=== PATIENT | male | born 1955 | race Caucasian/White ===

== ENCOUNTER 2018-03-07 09:37 | Inpatient (IN) | payer BC ==
[~2018-03-07] VITALS: Ht 175.3 cm; Wt 80.7 kg
[2018-03-07 09:57] VITALS: BP 132/70
[2018-03-07 10:43] LABS: APPEARANCE,URINE TURBID; BILIRUBIN, URINE NEGATIVE (NEGATIVE); COLOR,URINE PALE YELLOW; GLUCOSE, URINE (UA) 2+ (NEGATIVE); KETONES,URINE 1+ (NEGATIVE); LEUKOCYTE ESTERASE ,URINE 1+ (NEGATIVE); NITRITE,URINE NEGATIVE (NEGATIVE); PH,URINE 7 (4.5-8.0); PROTEIN,URINE 4+ (NEGATIVE); UROBILINOGEN,URINE NORMAL MG/DL (0.0-1.0)
[2018-03-07 10:45] LABS: BASOPHILS % (AUTO) 1.6 % (0.0-2.0); EOSINOPHILS % (AUTO) 1.9 % (0.0-3.0); HEMATOCRIT 36.6 % (42.0-52.0); HEMOGLOBIN 11.9 G/DL (14.2-18.0); LYMPHOCYTES % (AUTO) 14.9 % (20.0-45.0); MEAN CORPUSCULAR VOLUME 90 FL (80-99); MONOCYTES % (AUTO) 6.3 % (1.0-10.0); NEUTROPHILS % (AUTO) 75.2 % (45.0-75.0); PLATELET COUNT 394 K/UL (150-450); RED BLOOD COUNT 4.07 M/UL (4.70-6.10); RED CELL DISTRIBUTION WIDTH 13.4 % (11.6-14.8); WHITE BLOOD COUNT 13.6 K/UL (4.8-10.8)
[2018-03-07 10:53] LABS: ANION GAP 6 mmol/L (5-15); BLOOD UREA NITROGEN 53 mg/dL (7-18); CALCIUM 9.5 MG/DL (8.5-10.1); CARBON DIOXIDE 30 MMOL/L (21-32); CHLORIDE 111 MMOL/L (98-107); CREATININE 2.3 MG/DL (0.55-1.30); POTASSIUM 5.2 MMOL/L (3.5-5.1); SODIUM 147 MMOL/L (136-145)
[2018-03-07 10:57] LABS: ALANINE AMINOTRANSFERASE 24 U/L (12-78); ALBUMIN 2.1 G/DL (3.4-5.0); ALBUMIN/GLOBULIN RATIO 0.4 (1.0-2.7); ALKALINE PHOSPHATASE 99 U/L (46-116); ASPARTATE AMINO TRANSFERASE 21 U/L (15-37); BILIRUBIN,TOTAL 0.2 MG/DL (0.2-1.0); CREATINE KINASE 45 U/L (26-308)
[2018-03-07] MEDS ORDERED: PANTOPRAZOLE SO40 MG GT (11:44)
[2018-03-07] MEDS ORDERED: AMLODIPINE BESYL5 MG GT (11:44)
[2018-03-07] MEDS ORDERED: MILK OF MA400 MG/51 HEMO (11:44)
[2018-03-07] MEDS ORDERED: ACETAMINOPHEN325 M1 GT (11:44)
[2018-03-07] MEDS ORDERED: ASCORBIC ACID500 MG GT (11:44)
[2018-03-07] MEDS ORDERED: CATAPRES-TTS 11 EACH TDERMAL (11:44)
[2018-03-07] MEDS ORDERED: AMIODARONE HCL400 M1 GT (11:44)
[2018-03-07] MEDS ORDERED: METOPROLOL TART50 MG GT (11:44)
[2018-03-07] MEDS ORDERED: ZINC-220220 MG GT (11:44)
[2018-03-07] MEDS ORDERED: HYDRALAZINE HCL50 MG GT (11:44)
[2018-03-07] MEDS ORDERED: LANTUS SOL100 UNIT/1 SUBQ (11:44)
[2018-03-07] MEDS ORDERED: LISINOPRIL40 MG ORAL (11:44)
[2018-03-07] MEDS ORDERED: BETHANECHOL CHL25 MG GT (11:44)
[2018-03-07] MEDS ORDERED: ATORVASTATIN CA40 MG GT (11:44)
--- NOTE | 2018-03-07 13:05 | Emergency Room Report ---
History of Present Illness General Chief Complaint: Gastrointestinal Bleed Source: Medical Record, EMS Present Illness HPI This patient [facility]. He had an episode of coffee-ground emesis this morning per the staff and was transferred here for concern of upper GI bleed. The patient himself has no complaints. He is able to shake his head yes or no but he has severe dementia. There is no other history of present illness available. Allergies: Coded Allergies: PENICILLINS (Verified Allergy, Unknown, 03/07/18) Patient History Past Medical History: see triage record, old chart reviewed, DM, CVA/TIA, dementia Past Surgical History: other - G-tube Social History: Denies: smoking, alcohol use, drug use Reviewed Nursing Documentation: PMH: Agreed; PSxH: Agreed Nursing Documentation-PMH Past Medical History: No History, Except For Hx Hypertension: Yes Hx Diabetes: Yes Review of Systems All Other Systems: limited Physical Exam Vital Signs Date Time Temp Pulse Resp B/P (MAP) Pulse Ox O2 Delivery O2 Flow Rate FiO2 03/07/18 09:37 97.3 72 20 132/70 95 Room Air 97.3 Sp02 EP Interpretation: reviewed, normal General Appearance: no apparent distress, alert, GCS 15, non-toxic Head: normocephalic, atraumatic ENT: hearing grossly normal, no angioedema Neck: full range of motion, supple/symm/no masses Respiratory: chest non-tender, lungs clear, normal breath sounds, no respiratory distress, no retraction, no accessory muscle use, speaking full sentences Cardiovascular #1: regular rate, rhythm, no edema, systolic murmur Gastrointestinal: normal bowel sounds, non tender, soft, non-distended, no guarding, no rebound, other - G-tube in place Rectal: deferred Musculoskeletal: other - At baseline Neurologic: alert, responsive, other - At baseline Psychiatric: mood/affect normal Skin: warm/dry, well hydrated, other - See RN skin exam Medical Decision Making Last Vital Signs Date Time Temp Pulse Resp B/P (MAP) Pulse Ox O2 Delivery O2 Flow Rate FiO2 03/07/18 09:57 97.3 86 20 132/70 95 Room Air 97.3 Referrals: Wes Jara MD (PCP) BERHANE CARRILLO D.O. March 07, 2018 13:05
--- NOTE | 2018-03-07 13:16 | Emergency Room Report ---
History of Present Illness General Chief Complaint: Gastrointestinal Bleed Source: Medical Record, EMS Present Illness Allergies: Coded Allergies: PENICILLINS (Verified Allergy, Unknown, 03/07/18) Nursing Documentation-[facility] Past Medical History: No History, Except For Hx Hypertension: Yes Hx Diabetes: Yes Physical Exam Vital Signs Date Time Temp Pulse Resp B/P (MAP) Pulse Ox O2 Delivery O2 Flow Rate FiO2 03/07/18 09:37 97.3 72 20 132/70 95 Room Air 97.3 Medical Decision Making Diagnostic Impression: Primary Impression: NSTEMI (non-ST elevated myocardial infarction) Additional Impression: UGI bleed ER Course See my other note for history and physical. This chronically ill patient had an episode of coffee-ground emesis prior to arrival here in the emergency department. Possibly this patient has an upper GI bleed. The patient's hemoglobin and hematocrit are not at transfusion level. The patient had no further episodes during his ED course. He is also found to have an elevated troponin consistent with a NSTEMI. The patient is admitted to the ICU step down as this patient's chronic medical illnesses, upper GI bleed and NSTEMI together put him at higher risk for rapid decompensation. This patient is critically ill. This patient required complex medical decision- making, aggressive intervention, extensive laboratory workup and monitoring. Critical care time: 40 minutes. Laboratory Tests Test 03/07/18 10:20 03/07/18 10:28 Urine Color Pale yellow Urine Appearance Turbid Urine pH 7 (4.5-8.0) Urine Specific [place] 1.005 (1.005-1.035) Urine Protein 4+ (NEGATIVE) H Urine Glucose (UA) 2+ (NEGATIVE) H Urine Ketones 1+ (NEGATIVE) H Urine Occult Blood 5+ (NEGATIVE) H Urine Nitrite Negative (NEGATIVE) Urine Bilirubin Negative (NEGATIVE) Urine Urobilinogen Normal MG/DL (0.0-1.0) Urine Leukocyte Esterase 1+ (NEGATIVE) H Urine RBC Tntc /HPF (0 - 0) H Urine WBC 2-4 /HPF (0 - 0) Urine Squamous Epithelial Cells Few /LPF (NONE/OCC) Urine Bacteria Few /HPF (NONE) Lactic Acid Level 1.10 mmol/L (0.66-2.22) White Blood Count 13.6 K/UL (4.8-10.8) H Red Blood Count 4.07 M/UL (4.70-6.10) L Hemoglobin 11.9 G/DL (14.2-18.0) L Hematocrit 36.6 % (42.0-52.0) L Mean Corpuscular Volume 90 FL (80-99) Mean Corpuscular Hemoglobin 29.2 PG (27.0-31.0) Mean Corpuscular Hemoglobin Concent 32.4 G/DL (32.0-36.0) Red Cell Distribution Width 13.4 % (11.6-14.8) Platelet Count 394 K/UL (150-450) Mean Platelet Volume 8.7 FL (6.5-10.1) Neutrophils (%) (Auto) 75.2 % (45.0-75.0) H Lymphocytes (%) (Auto) 14.9 % (20.0-45.0) L Monocytes (%) (Auto) 6.3 % (1.0-10.0) Eosinophils (%) (Auto) 1.9 % (0.0-3.0) Basophils (%) (Auto) 1.6 % (0.0-2.0) Prothrombin Time 10.3 SEC (9.30-11.50) Prothrombin Time INR 1.0 (0.9-1.1) PTT 24 SEC (23-33) Sodium Level 147 MMOL/L (136-145) H Potassium Level 5.2 MMOL/L (3.5-5.1) H Chloride Level 111 MMOL/L (98-107) H Carbon Dioxide Level 30 MMOL/L (21-32) Anion Gap 6 mmol/L (5-15) Blood Urea Nitrogen 53 mg/dL (7-18) H Creatinine 2.3 MG/DL (0.55-1.30) H Estimate Glomerular Filtration Rate 29.1 mL/min (>60) Glucose Level 188 MG/DL (74-106) H Calcium Level 9.5 MG/DL (8.5-10.1) Total Bilirubin 0.2 MG/DL (0.2-1.0) Aspartate Amino Transferase (AST) 21 U/L (15-37) Alanine Aminotransferase (ALT) 24 U/L (12-78) Alkaline Phosphatase 99 U/L (46-116) Total Creatine Kinase 45 U/L (26-308) Troponin I 0.157 ng/mL (0.000-0.056) Total Protein 7.5 G/DL (6.4-8.2) Albumin 2.1 G/DL (3.4-5.0) L Globulin 5.4 g/dL Albumin/Globulin Ratio 0.4 (1.0-2.7) L Lipase 125 U/L (73-393) EKG Diagnostic Results Rate: normal Rhythm: NSR ST Segments: no acute changes Rhythm Strip Diag. Results EP Interpretation: yes Rate: 70's Rhythm: NSR, no PVC's, no ectopy Last Vital Signs Date Time Temp Pulse Resp B/P (MAP) Pulse Ox O2 Delivery O2 Flow Rate FiO2 03/07/18 09:57 97.3 86 20 132/70 95 Room Air 97.3 Disposition: ADMITTED INPATIENT Condition: Critical Referrals: Wes Jara MD (PCP) BERHANE CARRILLO D.O. March 07, 2018 13:15
[2018-03-07 13:53] VITALS: BP 128/76
[2018-03-07] MEDS ORDERED: HUMALOG100 UNIT/4 SUBQ (14:37)
[2018-03-07 14:48] VITALS: BP 143/75
[2018-03-07 16:00] VITALS: BP 159/74
--- NOTE | 2018-03-07 17:51 | History & Physical ---
History and Physical History & Physicial 62 year old patient presents from a custodial facility. He had an episode of coffee-ground emesis this morning per the staff and was transferred and being admitted for upper GI bleed. The patient himself has no complaints. patient with severe dementia. There is no other history of present illness available. Allergies: PENICILLINS (Verified Allergy, Unknown, 03/07/18) Past Medical History: DM, CVA/TIA, dementia Past Surgical History: other - G-tube Social History: SNF patient Reviewed Nursing Documentation: unable Physical WDWN NAD clear breath sounds bilaterally without rhonchi or wheeze [id number] without MRG NABS nontender no HSM; GT no CCE confused Laboratory Tests Test 03/07/18 10:20 03/07/18 10:28 Urine Color Pale yellow Urine Appearance Turbid Urine pH 7 (4.5-8.0) Urine Specific [place] 1.005 (1.005-1.035) Urine Protein 4+ (NEGATIVE) H Urine Glucose (UA) 2+ (NEGATIVE) H Urine Ketones 1+ (NEGATIVE) H Urine Occult Blood 5+ (NEGATIVE) H Urine Nitrite Negative (NEGATIVE) Urine Bilirubin Negative (NEGATIVE) Urine Urobilinogen Normal MG/DL (0.0-1.0) Urine Leukocyte Esterase 1+ (NEGATIVE) H Urine RBC Tntc /HPF (0 - 0) H Urine WBC 2-4 /HPF (0 - 0) Urine Squamous Epithelial Cells Few /LPF (NONE/OCC) Urine Bacteria Few /HPF (NONE) Lactic Acid Level 1.10 mmol/L (0.66-2.22) White Blood Count 13.6 K/UL (4.8-10.8) H Red Blood Count 4.07 M/UL (4.70-6.10) L Hemoglobin 11.9 G/DL (14.2-18.0) L Hematocrit 36.6 % (42.0-52.0) L Mean Corpuscular Volume 90 FL (80-99) Mean Corpuscular Hemoglobin 29.2 PG (27.0-31.0) Mean Corpuscular Hemoglobin Concent 32.4 G/DL (32.0-36.0) Red Cell Distribution Width 13.4 % (11.6-14.8) Platelet Count 394 K/UL (150-450) Mean Platelet Volume 8.7 FL (6.5-10.1) Neutrophils (%) (Auto) 75.2 % (45.0-75.0) H Lymphocytes (%) (Auto) 14.9 % (20.0-45.0) L Monocytes (%) (Auto) 6.3 % (1.0-10.0) Eosinophils (%) (Auto) 1.9 % (0.0-3.0) Basophils (%) (Auto) 1.6 % (0.0-2.0) Prothrombin Time 10.3 SEC (9.30-11.50) Prothromb Time International Ratio 1.0 (0.9-1.1) Activated Partial Thromboplast Time 24 SEC (23-33) Sodium Level 147 MMOL/L (136-145) H Potassium Level 5.2 MMOL/L (3.5-5.1) H Chloride Level 111 MMOL/L (98-107) H Carbon Dioxide Level 30 MMOL/L (21-32) Anion Gap 6 mmol/L (5-15) Blood Urea Nitrogen 53 mg/dL (7-18) H Creatinine 2.3 MG/DL (0.55-1.30) H Estimat Glomerular Filtration Rate 29.1 mL/min (>60) Glucose Level 188 MG/DL (74-106) H Calcium Level 9.5 MG/DL (8.5-10.1) Total Bilirubin 0.2 MG/DL (0.2-1.0) Aspartate Amino Transf (AST/SGOT) 21 U/L (15-37) Alanine Aminotransferase (ALT/SGPT) 24 U/L (12-78) Alkaline Phosphatase 99 U/L (46-116) Total Creatine Kinase 45 U/L (26-308) Troponin I 0.157 ng/mL (0.000-0.056) Total Protein 7.5 G/DL (6.4-8.2) Albumin 2.1 G/DL (3.4-5.0) L Globulin 5.4 g/dL Albumin/Globulin Ratio 0.4 (1.0-2.7) L Lipase 125 U/L (73-393) IMPRESSION possible GIB coffee ground emesis anemia acute renal failure hypernatremia dementia chronic encephalopathy PLAN hypotonic fluids protonix gi cards renal monitor NPO x meds impression, plan, and exam edited and reviewed in detail care discussed with RN Ishaaya,Wes M MD March 07, 2018 17:51
[2018-03-07] MEDS: Ascorbic Acid 500mg tab GT SCH (18:00)
[2018-03-07] MEDS: Bethanechol 25mg Tab GT SCH (18:00)
[2018-03-07 20:00] VITALS: BP 133/70
--- NOTE | 2018-03-07 21:06 | Diagnostic Imaging Report ---
EXAM: US Retroperitoneal Limited, Renal CLINICAL HISTORY: RENAL-A TECHNIQUE: Real-time ultrasound of the retroperitoneum (limited) with image documentation. COMPARISON: No relevant prior studies available. FINDINGS: Right kidney: Measures 11.5 cm. No stones. No solid mass. No hydronephrosis. Left kidney: Measures 12.8 cm. No stones. No solid mass. No hydronephrosis. IMPRESSION: Unremarkable appearance of the kidneys.
[2018-03-07] MEDS: Amiodarone 200mg tab GT SCH (21:46)
[2018-03-07] MEDS: HydrALAZINE 50mg tab GT SCH (21:47)
[2018-03-07] MEDS: Metoprolol Tartrate 50mg tab GT SCH (21:48)
[2018-03-07] MEDS: Atorvastatin 80mg tab GT SCH (21:48)
[2018-03-07] MEDS: NovoLOG Insulin Flexpen SUBQ SCH (21:51)
--- NOTE | 2018-03-07 21:53 | General Progress Note ---
Assessment/Plan Assessment/Plan Assessment - UGIB, limited - ? GERD - mild anemia - OBS - Azotemia - dysphagia Recommendation - Follow conservatively - Monitor CBC - PPI - Elevate HOB - possible EGD next week Subjective Allergies: Coded Allergies: PENICILLINS (Verified Allergy, Unknown, 03/07/18) Objective Last 24 Hour Vital Signs Date Time Temp Pulse Resp B/P (MAP) Pulse Ox O2 Delivery O2 Flow Rate FiO2 03/07/18 21:48 74 133/70 03/07/18 21:47 133/70 03/07/18 18:14 159/74 03/07/18 16:00 81 03/07/18 16:00 97.9 82 18 159/74 96 Room Air 97.9 03/07/18 14:48 97.0 84 20 143/75 96 Room Air 97.0 03/07/18 14:37 97.0 80 22 128/76 96 Room Air 97.0 03/07/18 13:53 97.0 80 22 128/76 96 Room Air 97.0 03/07/18 09:57 97.3 86 20 132/70 95 Room Air 97.3 03/07/18 09:37 97.3 72 20 132/70 95 Room Air 97.3 Laboratory Tests 03/07/18 10:20: Urine Color Pale yellow, Urine Appearance Turbid, Urine pH 7, Urine Specific [place] 1.005, Urine Protein 4+H, Urine Glucose (UA) 2+H, Urine Ketones 1+H, Urine Occult Blood 5+H, Urine Nitrite Negative, Urine Bilirubin Negative, Urine Urobilinogen Normal, Urine Leukocyte Esterase 1+H, Urine RBC TntcH, Urine WBC 2- 4, Urine Squamous Epithelial Cells Few, Urine Bacteria Few, Lactic Acid Level 1.10 03/07/18 10:28: White Blood Count 13.6H, Red Blood Count 4.07L, Hemoglobin 11.9L, Hematocrit 36.6L, Mean Corpuscular Volume 90, Mean Corpuscular Hemoglobin 29.2, Mean Corpuscular Hemoglobin Concent 32.4, Red Cell Distribution Width 13.4, Platelet Count 394, Mean Platelet Volume 8.7, Neutrophils (%) (Auto) 75.2H, Lymphocytes ( %) (Auto) 14.9L, Monocytes (%) (Auto) 6.3, Eosinophils (%) (Auto) 1.9, Basophils (%) (Auto) 1.6, Prothrombin Time 10.3, Prothromb Time International Ratio 1.0, Activated Partial Thromboplast Time 24, Sodium Level 147H, Potassium Level 5.2H, Chloride Level 111H, Carbon Dioxide Level 30, Anion Gap 6, Blood Urea Nitrogen 53H, Creatinine 2.3H, Estimat Glomerular Filtration Rate 29.1, Glucose Level 188H, Calcium Level 9.5, Total Bilirubin 0.2, Aspartate Amino Transf (AST/SGOT) 21, Alanine Aminotransferase (ALT/SGPT) 24, Alkaline Phosphatase 99, Total Creatine Kinase 45, Troponin I 0.157H, Total Protein 7.5, Albumin 2.1L, Globulin 5.4, Albumin/Globulin Ratio 0.4L, Lipase 125 Height (Feet): 5 Height (Inches): 9.00 Weight (Pounds): 178 Esa Stanton MD March 07, 2018 21:53
[2018-03-08] VITALS: BP 125/65
--- NOTE | 2018-03-08 01:45 | Consultation ---
DATE OF CONSULTATION: 03/07/2018 CONSULTING PHYSICIAN: Tung Joseph M.D. REFERRING PHYSICIAN: Wes Jara M.D. REASON FOR CONSULTATION: 1. Acute kidney injury. 2. Hyperkalemia. HISTORY OF PRESENT ILLNESS: The patient is a 62-year-old gentleman who was admitted from the senior care facility. History was obtained through electronic chart review as the patient is not answering questions coherently. He seems resting and comfortable. It seems that the patient had an episode of coffee-ground emesis in the morning per senior care staff and was transferred for a possibility of upper GI bleed. The patient does have underlying dementia, which seems to be at baseline when it was noted that his creatinine was 2.3, BUN 53, potassium 5.2, and sodium 147. PAST MEDICAL HISTORY: 1. Diabetes mellitus. 2. CVA. 3. TIA. 4. Severe dementia. PAST SURGICAL HISTORY: G-tube. ALLERGIES: Penicillin. SOCIAL HISTORY: No tobacco, alcohol, or illicit drug use. The patient is currently residing at senior care facility. REVIEW OF SYSTEMS: Cannot obtain, as the patient has severe dementia and does not answer questions coherently. PHYSICAL EXAMINATION: VITAL SIGNS: Blood pressure 159/74, respiratory rate 18, temperature 97.9 degrees, and pulse oximetry 96% on room air. GENERAL: The patient is awake, not otherwise distress. HEENT: Extraocular muscles intact. No lymphadenopathy noted. CARDIOVASCULAR: S1 and S2. No rubs or gallops. PULMONARY: Clear to auscultation bilaterally. No rales, rhonchi, or wheezes. ABDOMEN: Nondistended and nontender with good bowel sounds in all 4 quadrants. The patient has a G-tube. EXTREMITIES: No edema noted with fair pedal pulses. SKIN: No evident of new rashes. LABORATORY AND DIAGNOSTIC DATA: Laboratories dated 03/07/2018, sodium 147, potassium 5.2, BUN 53, and creatinine 2.3. Troponin 0.157. Albumin 2.1. Hemoglobin 11.9, white cell count 13.6, and platelet count 394. ASSESSMENT AND PLAN: 1. Hypernatremia. The patient has approximately 2 to 3 liters of intravascular volume depletion. Agree with initiation of hypotonic solution of half normal saline. 2. Mild hyperkalemia, potassium 5.2 secondary to renal insufficiency and possible GI bleed. At this time, agree with hypotonic IV fluids. We will monitor potassium, as it is mild in nature, as he is on lisinopril. If potassium worsens, we will have to treat the potassium medically and discontinue lisinopril. 3. Acute kidney injury with elevated BUN, creatinine 2.3. At this time most likely secondary to component of intravascular volume depletion while being on lisinopril. At this time, the patient is being hydrated and lisinopril will be continued. If renal function or potassium worsen, lisinopril will be discontinued and hydration continued. At this time, we will also get a renal ultrasound to rule out any obstructive nature. 4. GI bleed. Contributing to elevated BUN. Elevated BUN also component of intravascular volume depletion. Upper gastrointestinal bleed will be deferred management to primary care physician. 5. HTN- adjust medciations as needed. If renal function or potassium worsen may need to stop Lisinopril Let me take this opportunity to thank, Dr. Jara. I will continue to follow this patient on a daily basis until his renal function, potassium and sodium normalize. Tung Joseph MD DR: LILLI JOB#: [id number] CC: KRISHNA
--- NOTE | 2018-03-08 02:30 | Consultation ---
DATE OF CONSULTATION: 03/07/2018 GASTROLOGY CONSULTATION CHIEF COMPLAINT: I was asked to see this patient by Dr. Wes Jara for evaluation of upper gastrointestinal bleeding. HISTORY OF PRESENT ILLNESS: The patient is a debilitated unfortunate 62-year-old white man, who is a tracheostomy patient, who is brought into the hospital due to an episode of reported hematemesis. The patient is unable to provide any details. Most of the information is only available from the chart. The patient requires long-term enteral tube feeding for nutrition. The episodes of upper gastrointestinal bleeding was reported as coffee-ground emesis in the emergency room. He has some mild degree of anemia, but not to a level that would require transfusion. The patient also has elevated troponin level which is being also addressed to be evaluated. His creatinine is 2.3 on his laboratory profile. He has been placed on a proton pump inhibitor. PAST MEDICAL HISTORY: Remarkable for history of hypertension, history of hypercholesterolemia, history of respiratory failure requiring tracheostomy tube placement, history of diabetes, current azotemia, and current anemia. ALLERGIES: Penicillin. FAMILY HISTORY: Not available. SOCIAL HISTORY: The patient lives in a long term. REVIEW OF SYSTEMS: Otherwise unobtainable. PHYSICAL EXAMINATION: GENERAL: Debilitated, nonverbal white man, who intermittently moves spontaneously without direction, in no distress. HEENT: Normocephalic and atraumatic. Tracheostomy was in place. The oropharynx showed some old dry blood. NECK: Supple. CHEST: Coarse breath sounds. CARDIOVASCULAR: Revealed a regular rate. ABDOMEN: Soft and flat. There is no organomegaly. The gastrostomy tube was in good position and it flushed brown material according to the nurse. EXTREMITIES: Revealed some contractures. LABORATORY DATA: Noted. The patient had a troponin of 0.157 and creatinine of 2.3. Hemoglobin 11.9. ASSESSMENT: This patient presents with apparent mild degree of coffee-ground emesis as reported by the staff and also a small amount of crusted blood seen in the mouth. His anemia is only mild and does not need to have transfusion. In addition, an endoscopy at this time would not significantly alter management as he also has elevated troponin level. I will treat the patient empirically for now with proton pump inhibitor twice daily and follow his hematocrit closely. He may dilute down the actual hemoglobin value with intravenous hydration. However, attention should be made to whether he has melena. A consideration can be made to perform an endoscopy for evaluation of gastrointestinal bleeding versus conservative management. RECOMMENDATIONS: 1. Proton pump inhibitor. 2. Elevate the head of the bed. 3. Serial CBC. 4. Intravenous fluids. 5. Further recommendations to follow. Thank you for asking me to participate in the care of this patient. Esa Stanton M.D. DR: YOLY JOB#: [id number] CC: KRISHNA
--- NOTE | 2018-03-08 03:45 | Consultation ---
DATE OF CONSULTATION: 03/07/2018 CARDIOLOGY CONSULTATION CONSULTING PHYSICIAN: Dimitri Saha M.D. REASON FOR CONSULTATION: Elevated troponin level. HISTORY OF PRESENT ILLNESS: This is a 62-year-old male. He presents from a nursing home facility with an episode of coffee-ground emesis. In the emergency room, a diagnostic workup was undertaken. The patient is unable to give much reliable history due to underlying dementia. Concern has been raised over an elevated troponin level prompting this consultation. The patient has not had any apparent chest pain complaints or shortness of breath. PAST MEDICAL HISTORY: Cerebrovascular disease with dementia, type 2 diabetes mellitus, hypertension, dysphagia with G-tube, peripheral artery disease, amputated right first toe, and chronic kidney disease. ALLERGIES: Penicillin. SOCIAL HISTORY: No record of smoking, alcohol, or substance abuse. MEDICATIONS: Prior to admission, reviewed and reconciled. REVIEW OF SYSTEMS: Not obtainable due to patient's underlying dementia. Pertinent data from review of nursing home records are outlined above. PHYSICAL EXAMINATION: VITAL SIGNS: Blood pressure 159/74, pulse 74, respiratory rate 20, afebrile, and room air oxygen saturation 93%. HEENT: Conjunctivae are pink. Oropharynx clear. Poor dentition. NECK: Supple. LUNGS: Clear. CARDIAC: Regular rhythm and rate. Normal S1, S2 with a 1/6 systolic murmur at apex. ABDOMEN: Soft. No guarding. No rebound. No distention. EXTREMITIES: Good pulses. No edema. Right first toe amputated. LABORATORY AND DIAGNOSTIC DATA: White count 13.6, hemoglobin 11.9. Lactic acid 1.1. Troponin 0.157. Albumin 2.1. Sodium 147, potassium 5.2, chloride 111, bicarbonate 30, BUN 53, creatinine 2.3, and glucose 188. EKG, sinus rhythm, nonspecific ST-T wave changes. Chest x-ray, no acute process. IMPRESSION: 1. Elevated troponin level, hypoperfusion, and acute coronary insufficiency now in the setting of hypovolemia, dehydration, and acute gastrointestinal blood loss. The possibility of a non-ST elevation myocardial infarction is remote, but possible. 2. Acute gastrointestinal bleed, now apparently stabilized. 3. Dehydration, hypernatremia. 4. Hypokalemia. 5. Acute on chronic kidney injury. 6. Cerebrovascular disease with dementia. 7. Severe protein-calorie malnutrition. RECOMMENDATIONS: 1. Hypotonic IV fluid hydration. 2. No anti-platelet therapy. 3. Serial hemoglobin. 4. Serial troponin. 5. Cardiac monitoring. 6. Consider beta-juany based on clinical parameters. 7. Echocardiogram. 8. Nutritional support. Dimitri Saha M.D. DR: JILLIAN JOB#: [id number] CC:
[2018-03-08 04:00] VITALS: BP 136/64
[2018-03-08 06:06] LABS: BASOPHILS % (AUTO) 1.3 % (0.0-2.0); EOSINOPHILS % (AUTO) 3.4 % (0.0-3.0); HEMATOCRIT 32.2 % (42.0-52.0); HEMOGLOBIN 10.2 G/DL (14.2-18.0); LYMPHOCYTES % (AUTO) 18.2 % (20.0-45.0); MEAN CORPUSCULAR VOLUME 90 FL (80-99); MONOCYTES % (AUTO) 6.6 % (1.0-10.0); NEUTROPHILS % (AUTO) 70.5 % (45.0-75.0); PLATELET COUNT 374 K/UL (150-450); RED BLOOD COUNT 3.58 M/UL (4.70-6.10); RED CELL DISTRIBUTION WIDTH 13.3 % (11.6-14.8)
[2018-03-08 06:28] LABS: ANION GAP 8 mmol/L (5-15); BLOOD UREA NITROGEN 48 mg/dL (7-18); CALCIUM 8.6 MG/DL (8.5-10.1); CARBON DIOXIDE 25 MMOL/L (21-32); CHLORIDE 115 MMOL/L (98-107); CREATININE 2.2 MG/DL (0.55-1.30); SODIUM 148 MMOL/L (136-145)
--- NOTE | 2018-03-08 06:30 | Consultation ---
DATE OF CONSULTATION: 03/07/2018 GASTROLOGY CONSULTATION CONSULTING PHYSICIAN: Esa Stanton M.D. CHIEF COMPLAINT: I was asked to see this patient by Dr. Wes Jara for evaluation of gastrointestinal bleeding. HISTORY OF PRESENT ILLNESS: The patient is a 62-year-old white man who is from nursing facility, who was brought in for upper gastrointestinal bleeding. The patient himself is unable to provide any history. Most of the information was available from the chart. The patient has respiratory failure, has history of tracheostomy and dependent on gastrostomy and tracheostomy care for long-term management. No further details were available on this episode of the bleeding. The patient was admitted for further evaluation and care. No melena has been reported. PAST MEDICAL HISTORY: History of dementia, respiratory failure, bedbound state, recurrent azotemia, and anemia. FAMILY HISTORY: Unavailable. SOCIAL HISTORY: The [facility] is a current [facility] resident. REVIEW OF SYSTEMS: Otherwise negative. PHYSICAL EXAMINATION: GENERAL: Debilitated white man seen in the hospital, in no distress. HEENT: Normocephalic and atraumatic. Dentition was poor. There is some crusting of blood in the mouth. NECK: Supple. CHEST: Clear to auscultation. CARDIOVASCULAR: Regular rate. ABDOMEN: Soft. Good bowel sounds. There is proper gastrostomy catheter. EXTREMITIES: Revealed some contractures. ASSESSMENT AND PLAN: This patient presents with upper gastrointestinal bleeding which may be minor in degree since his hematocrit is grossly preserved, however, adequately hydrated, then his hematocrit may drop further down. There is no report of melena except some crusted old blood seen in mouth. Differential diagnosis most likely includes gastroesophageal reflux disease. She should be treated with proton pump inhibitor. A consideration can be made however, if family agree, to proceed with endoscopy next week. Thank you for asking me to participate in the care of this patient. Esa Stanton M.D. DR: PHIL JOB#: [id number] CC: KRISHNA
[2018-03-08] MEDS: HydrALAZINE 50mg tab GT SCH ×3 (06:31→20:57)
[2018-03-08] MEDS: NovoLOG Insulin Flexpen SUBQ SCH ×4 (06:32→20:49)
[2018-03-08 08:00] VITALS: BP 117/60
--- NOTE | 2018-03-08 08:06 | Nephrology Progress Note ---
Assessment/Plan Assessment/Plan 1. ROD on CKD 4- baseline Cr unkown - Cr down to 2.2 - ATN from vol depletion - Renal US negative. May need to hold Lisinopril if renal function does not improve or if it worsens 2. Hypernatremia- add free water thru GTube 3. Hyperkalemia- resolved 4. GI Bleed- per GI mgmt Subjective Date patient seen: March 08, 2018 Time patient seen: 08:03 ROS Limited/Unobtainable: Yes Allergies: Coded Allergies: PENICILLINS (Verified Allergy, Unknown, 03/07/18) All Systems: reviewed and negative except above Subjective Patient with severe dementia. In no acute distress Objective Last 24 Hour Vital Signs Date Time Temp Pulse Resp B/P (MAP) Pulse Ox O2 Delivery O2 Flow Rate FiO2 03/08/18 06:31 136/64 03/08/18 04:00 87 03/08/18 04:00 97.9 60 20 136/64 95 Room Air 97.9 03/08/18 00:00 97.5 60 20 125/65 95 Room Air 97.5 03/08/18 00:00 61 03/07/18 21:48 74 133/70 03/07/18 21:47 133/70 03/07/18 20:00 74 03/07/18 20:00 98.6 74 20 133/70 93 Room Air 98.6 03/07/18 18:14 159/74 03/07/18 16:00 81 03/07/18 16:00 97.9 82 18 159/74 96 Room Air 97.9 03/07/18 14:48 97.0 84 20 143/75 96 Room Air 97.0 03/07/18 14:37 97.0 80 22 128/76 96 Room Air 97.0 03/07/18 13:53 97.0 80 22 128/76 96 Room Air 97.0 03/07/18 09:57 97.3 86 20 132/70 95 Room Air 97.3 03/07/18 09:37 97.3 72 20 132/70 95 Room Air 97.3 Intake and Output 03/07/18 03/08/18 19:00 07:00 Intake Total 100 ml 1200 ml Output Total 0 ml 500 ml Balance 100 ml 700 ml Intake IV Total 100 ml 1200 ml Output Urine Total 0 ml 500 ml Laboratory Tests 03/07/18 10:20: Urine Color Pale yellow, Urine Appearance Turbid, Urine pH 7, Urine Specific [place] 1.005, Urine Protein 4+H, Urine Glucose (UA) 2+H, Urine Ketones 1+H, Urine Occult Blood 5+H, Urine Nitrite Negative, Urine Bilirubin Negative, Urine Urobilinogen Normal, Urine Leukocyte Esterase 1+H, Urine RBC TntcH, Urine WBC 2- 4, Urine Squamous Epithelial Cells Few, Urine Bacteria Few, Lactic Acid Level 1.10 03/07/18 10:28: White Blood Count 13.6H, Red Blood Count 4.07L, Hemoglobin 11.9L, Hematocrit 36.6L, Mean Corpuscular Volume 90, Mean Corpuscular Hemoglobin 29.2, Mean Corpuscular Hemoglobin Concent 32.4, Red Cell Distribution Width 13.4, Platelet Count 394, Mean Platelet Volume 8.7, Neutrophils (%) (Auto) 75.2H, Lymphocytes ( %) (Auto) 14.9L, Monocytes (%) (Auto) 6.3, Eosinophils (%) (Auto) 1.9, Basophils (%) (Auto) 1.6, Prothrombin Time 10.3, Prothromb Time International Ratio 1.0, Activated Partial Thromboplast Time 24, Sodium Level 147H, Potassium Level 5.2H, Chloride Level 111H, Carbon Dioxide Level 30, Anion Gap 6, Blood Urea Nitrogen 53H, Creatinine 2.3H, Estimat Glomerular Filtration Rate 29.1, Glucose Level 188H, Calcium Level 9.5, Total Bilirubin 0.2, Aspartate Amino Transf (AST/SGOT) 21, Alanine Aminotransferase (ALT/SGPT) 24, Alkaline Phosphatase 99, Total Creatine Kinase 45, Troponin I 0.157H, Total Protein 7.5, Albumin 2.1L, Globulin 5.4, Albumin/Globulin Ratio 0.4L, Lipase 125 03/08/18 03:30: White Blood Count 13.0H, Red Blood Count 3.58L, Hemoglobin 10.2L, Hematocrit 32.2L, Mean Corpuscular Volume 90, Mean Corpuscular Hemoglobin 28.5, Mean Corpuscular Hemoglobin Concent 31.6L, Red Cell Distribution Width 13.3, Platelet Count 374, Mean Platelet Volume 8.2, Neutrophils (%) (Auto) 70.5, Lymphocytes (%) (Auto) 18.2L, Monocytes (%) (Auto) 6.6, Eosinophils (%) (Auto) 3.4H, Basophils (%) (Auto) 1.3, Sodium Level 148H, Potassium Level 5.0, Chloride Level 115H, Carbon Dioxide Level 25, Anion Gap 8, Blood Urea Nitrogen 48H, Creatinine 2.2H, Estimat Glomerular Filtration Rate 30.6, Glucose Level 114H, Calcium Level 8.6, Troponin I 0.141H Height (Feet): 5 Height (Inches): 9.00 Weight (Pounds): 178 General Appearance: WD/WN, no apparent distress EENT: normal ENT inspection, TMs normal Neck: normal alignment, supple Cardiovascular: normal rate, regular rhythm Respiratory/Chest: lungs clear, normal breath sounds Abdomen: non tender, soft Edema: no edema noted Arm (L), no edema noted Arm (R), no edema noted Leg (L), no edema noted Leg (R), no edema noted Pedal (L), no edema noted Pedal (R), no edema noted Generalized Tung Joseph M.D. March 08, 2018 08:06
[2018-03-08] MEDS: Metoprolol Tartrate 50mg tab GT SCH ×2 (09:00→20:57)
[2018-03-08] MEDS: Amiodarone 200mg tab GT SCH ×2 (09:16→20:56)
[2018-03-08] MEDS: Bethanechol 25mg Tab GT SCH ×3 (09:16→17:49)
[2018-03-08] MEDS: Lisinopril 20mg tab ORAL SCH (09:16)
[2018-03-08] MEDS: Zinc Sulfate 220mg cap GT SCH (09:16)
[2018-03-08] MEDS: Milk of Magnesia 30ml Ud GT SCH (09:16)
[2018-03-08] MEDS: Ascorbic Acid 500mg tab GT SCH ×2 (09:16→17:49)
[2018-03-08 12:00] VITALS: BP 129/69
[2018-03-08] MEDS ORDERED: 1/2 NS 1000ml IV ONE (15:41)
--- NOTE | 2018-03-08 15:50 | General Progress Note ---
Assessment/Plan Assessment/Plan IMPRESSION possible GIB coffee ground emesis anemia acute renal failure hypernatremia dementia chronic encephalopathy PLAN hypotonic fluids as is protonix gi cards renal monitor ? feeds impression, plan, and exam edited and reviewed in detail care discussed with RN Subjective Allergies: Coded Allergies: PENICILLINS (Verified Allergy, Unknown, 03/07/18) Subjective care noted comfortable Objective Last 24 Hour Vital Signs Date Time Temp Pulse Resp B/P (MAP) Pulse Ox O2 Delivery O2 Flow Rate FiO2 03/08/18 13:37 129/69 03/08/18 12:00 97.6 59 20 129/69 97 Room Air 97.6 03/08/18 11:54 60 03/08/18 09:16 117/60 03/08/18 09:16 54 117/60 03/08/18 09:00 54 117/60 03/08/18 08:00 97.6 54 19 117/60 96 Room Air 97.6 03/08/18 07:57 56 03/08/18 06:31 136/64 03/08/18 04:00 87 03/08/18 04:00 97.9 60 20 136/64 95 Room Air 97.9 03/08/18 00:00 97.5 60 20 125/65 95 Room Air 97.5 03/08/18 00:00 61 03/07/18 21:48 74 133/70 03/07/18 21:47 133/70 03/07/18 20:00 74 03/07/18 20:00 98.6 74 20 133/70 93 Room Air 98.6 03/07/18 18:14 159/74 03/07/18 16:00 81 03/07/18 16:00 97.9 82 18 159/74 96 Room Air 97.9 Intake and Output 03/07/18 03/08/18 19:00 07:00 Intake Total 100 ml 1200 ml Output Total 0 ml 500 ml Balance 100 ml 700 ml IV Total 100 ml 1200 ml Output Urine Total 0 ml 500 ml Laboratory Tests 03/08/18 03:30: White Blood Count 13.0H, Red Blood Count 3.58L, Hemoglobin 10.2L, Hematocrit 32.2L, Mean Corpuscular Volume 90, Mean Corpuscular Hemoglobin 28.5, Mean Corpuscular Hemoglobin Concent 31.6L, Red Cell Distribution Width 13.3, Platelet Count 374, Mean Platelet Volume 8.2, Neutrophils (%) (Auto) 70.5, Lymphocytes (%) (Auto) 18.2L, Monocytes (%) (Auto) 6.6, Eosinophils (%) (Auto) 3.4H, Basophils (%) (Auto) 1.3, Sodium Level 148H, Potassium Level 5.0, Chloride Level 115H, Carbon Dioxide Level 25, Anion Gap 8, Blood Urea Nitrogen 48H, Creatinine 2.2H, Estimat Glomerular Filtration Rate 30.6, Glucose Level 114H, Calcium Level 8.6, Troponin I 0.141H Height (Feet): 5 Height (Inches): 9.00 Weight (Pounds): 178 Objective WDWN NAD clear breath sounds bilaterally without rhonchi or wheeze [id number] without MRG NABS nontender no HSM GT no CCE Wes Jara MD March 08, 2018 15:50
[2018-03-08 16:00] VITALS: BP 150/68
--- NOTE | 2018-03-08 16:09 | General Progress Note ---
Assessment/Plan Assessment/Plan Assessment - UGIB, limited - ? GERD - mild anemia - OBS - Azotemia - dysphagia - elevated Troponin Recommendation - Follow conservatively - resume feeds - Monitor CBC - PPI - Elevate HOB - possible EGD next week Subjective Allergies: Coded Allergies: PENICILLINS (Verified Allergy, Unknown, 03/07/18) Subjective non communicative comfortable Objective Last 24 Hour Vital Signs Date Time Temp Pulse Resp B/P (MAP) Pulse Ox O2 Delivery O2 Flow Rate FiO2 03/08/18 13:37 129/69 03/08/18 12:00 97.6 59 20 129/69 97 Room Air 97.6 03/08/18 11:54 60 03/08/18 09:16 117/60 03/08/18 09:16 54 117/60 03/08/18 09:00 54 117/60 03/08/18 08:00 97.6 54 19 117/60 96 Room Air 97.6 03/08/18 07:57 56 03/08/18 06:31 136/64 03/08/18 04:00 87 03/08/18 04:00 97.9 60 20 136/64 95 Room Air 97.9 03/08/18 00:00 97.5 60 20 125/65 95 Room Air 97.5 03/08/18 00:00 61 03/07/18 21:48 74 133/70 03/07/18 21:47 133/70 03/07/18 20:00 74 03/07/18 20:00 98.6 74 20 133/70 93 Room Air 98.6 03/07/18 18:14 159/74 Intake and Output 03/07/18 03/08/18 19:00 07:00 Intake Total 100 ml 1200 ml Output Total 0 ml 500 ml Balance 100 ml 700 ml IV Total 100 ml 1200 ml Output Urine Total 0 ml 500 ml Laboratory Tests 03/08/18 03:30: White Blood Count 13.0H, Red Blood Count 3.58L, Hemoglobin 10.2L, Hematocrit 32.2L, Mean Corpuscular Volume 90, Mean Corpuscular Hemoglobin 28.5, Mean Corpuscular Hemoglobin Concent 31.6L, Red Cell Distribution Width 13.3, Platelet Count 374, Mean Platelet Volume 8.2, Neutrophils (%) (Auto) 70.5, Lymphocytes (%) (Auto) 18.2L, Monocytes (%) (Auto) 6.6, Eosinophils (%) (Auto) 3.4H, Basophils (%) (Auto) 1.3, Sodium Level 148H, Potassium Level 5.0, Chloride Level 115H, Carbon Dioxide Level 25, Anion Gap 8, Blood Urea Nitrogen 48H, Creatinine 2.2H, Estimat Glomerular Filtration Rate 30.6, Glucose Level 114H, Calcium Level 8.6, Troponin I 0.141H Height (Feet): 5 Height (Inches): 9.00 Weight (Pounds): 178 Objective Elderly WM NCAT supple CTA RRR Soft ND NT no edema OBS Esa Stanton MD March 08, 2018 16:09
[2018-03-08 20:00] VITALS: BP 142/84
[2018-03-08] MEDS: Atorvastatin 80mg tab GT SCH (20:58)
[2018-03-09] VITALS: BP 153/73
[2018-03-09 04:00] VITALS: BP 149/79
[2018-03-09 05:25] LABS: BASOPHILS % (AUTO) 1.9 % (0.0-2.0); EOSINOPHILS % (AUTO) 4.4 % (0.0-3.0); HEMATOCRIT 31.2 % (42.0-52.0); HEMOGLOBIN 10.7 G/DL (14.2-18.0); MEAN CORPUSCULAR VOLUME 87 FL (80-99); MONOCYTES % (AUTO) 7.8 % (1.0-10.0); NEUTROPHILS % (AUTO) 71.9 % (45.0-75.0); PLATELET COUNT 356 K/UL (150-450); RED CELL DISTRIBUTION WIDTH 13.1 % (11.6-14.8); WHITE BLOOD COUNT 12.1 K/UL (4.8-10.8)
[2018-03-09 05:34] LABS: ANION GAP 9 mmol/L (5-15); BLOOD UREA NITROGEN 36 mg/dL (7-18); CALCIUM 8.8 MG/DL (8.5-10.1); CARBON DIOXIDE 24 MMOL/L (21-32); CHLORIDE 110 MMOL/L (98-107); POTASSIUM 4.2 MMOL/L (3.5-5.1); SODIUM 143 MMOL/L (136-145)
[2018-03-09] MEDS: HydrALAZINE 50mg tab GT SCH ×3 (06:13→22:17)
[2018-03-09] MEDS: NovoLOG Insulin Flexpen SUBQ SCH ×4 (06:16→22:22)
--- NOTE | 2018-03-09 06:53 | General Progress Note ---
Assessment/Plan Assessment/Plan IMPRESSION possible GIB coffee ground emesis anemia acute renal failure hypernatremia dementia chronic encephalopathy PLAN hypotonic fluids as is and monitor protonix gi - conservative care- ?dc in am if stable cards renal monitor without change impression, plan, and exam edited and reviewed in detail care discussed with RN Subjective ROS Limited/Unobtainable: Yes Allergies: Coded Allergies: PENICILLINS (Verified Allergy, Unknown, 03/07/18) Subjective care noted comfortable Objective Last 24 Hour Vital Signs Date Time Temp Pulse Resp B/P (MAP) Pulse Ox O2 Delivery O2 Flow Rate FiO2 03/09/18 06:13 149/79 03/09/18 04:00 97.6 68 20 149/79 95 Room Air 97.6 03/09/18 04:00 70 03/09/18 00:00 60 03/09/18 00:00 97.4 63 20 153/73 97 Room Air 97.4 03/08/18 20:57 59 142/84 03/08/18 20:57 142/84 03/08/18 20:00 98.2 64 16 142/84 98 Room Air 98.2 03/08/18 20:00 59 03/08/18 16:13 59 03/08/18 16:00 97.6 66 20 150/68 96 Room Air 97.6 03/08/18 13:37 129/69 03/08/18 12:00 97.6 59 20 129/69 97 Room Air 97.6 03/08/18 11:54 60 03/08/18 09:16 117/60 03/08/18 09:16 54 117/60 03/08/18 09:00 54 117/60 03/08/18 08:00 97.6 54 19 117/60 96 Room Air 97.6 03/08/18 07:57 56 Intake and Output 03/08/18 03/09/18 19:00 07:00 Intake Total 1485 ml 1220 ml Output Total 750 ml 1100 ml Balance 735 ml 120 ml Intake Free Water 230 ml 400 ml IV Total 1200 ml 400 ml Tube Feeding 55 ml 420 ml Output Urine Total 750 ml 1100 ml Laboratory Tests 03/09/18 04:35: White Blood Count 12.1H, Red Blood Count 3.60L, Hemoglobin 10.7L, Hematocrit 31.2L, Mean Corpuscular Volume 87, Mean Corpuscular Hemoglobin 29.7, Mean Corpuscular Hemoglobin Concent 34.2, Red Cell Distribution Width 13.1, Platelet Count 356, Mean Platelet Volume 7.8, Neutrophils (%) (Auto) 71.9, Lymphocytes (% ) (Auto) 14.0L, Monocytes (%) (Auto) 7.8, Eosinophils (%) (Auto) 4.4H, Basophils (%) (Auto) 1.9, Sodium Level 143, Potassium Level 4.2, Chloride Level 110H, Carbon Dioxide Level 24, Anion Gap 9, Blood Urea Nitrogen 36H, Creatinine 2.0H, Estimat Glomerular Filtration Rate 34.1, Glucose Level 118H, Calcium Level 8.8, Troponin I 0.125H Height (Feet): 5 Height (Inches): 9.00 Weight (Pounds): 178 Objective WDWN NAD clear breath sounds bilaterally without rhonchi or wheeze [id number] without MRG NABS nontender no HSM GT no CCE Wes Jara MD March 09, 2018 06:53
[2018-03-09 08:00] VITALS: BP 142/76
--- NOTE | 2018-03-09 08:40 | Nephrology Progress Note ---
Assessment/Plan Assessment/Plan 1. ROD on CKD 4- baseline Cr unkown - Cr improved to 2, ATN from vol depletion - Renal US negative. Continue IVF's and free water 2. Hypernatremia- free water thru GTube. Decrease IVF's, Na down to 143 3. Hyperkalemia- resolved 4. GI Bleed- per GI mgmt Subjective Date patient seen: March 09, 2018 Time patient seen: 08:38 ROS Limited/Unobtainable: Yes Allergies: Coded Allergies: PENICILLINS (Verified Allergy, Unknown, 03/07/18) All Systems: reviewed and negative except above Subjective Patient with severe dementia. In no acute distress and resting comfortably Objective Last 24 Hour Vital Signs Date Time Temp Pulse Resp B/P (MAP) Pulse Ox O2 Delivery O2 Flow Rate FiO2 03/09/18 08:00 97.5 67 21 142/76 94 Room Air 97.5 03/09/18 06:13 149/79 03/09/18 04:00 97.6 68 20 149/79 95 Room Air 97.6 03/09/18 04:00 70 03/09/18 00:00 60 03/09/18 00:00 97.4 63 20 153/73 97 Room Air 97.4 03/08/18 20:57 59 142/84 03/08/18 20:57 142/84 03/08/18 20:00 98.2 64 16 142/84 98 Room Air 98.2 03/08/18 20:00 59 03/08/18 16:13 59 03/08/18 16:00 97.6 66 20 150/68 96 Room Air 97.6 03/08/18 13:37 129/69 03/08/18 12:00 97.6 59 20 129/69 97 Room Air 97.6 03/08/18 11:54 60 03/08/18 09:16 117/60 03/08/18 09:16 54 117/60 03/08/18 09:00 54 117/60 Intake and Output 03/08/18 03/09/18 19:00 07:00 Intake Total 1485 ml 1220 ml Output Total 750 ml 1100 ml Balance 735 ml 120 ml Intake Free Water 230 ml 400 ml IV Total 1200 ml 400 ml Tube Feeding 55 ml 420 ml Output Urine Total 750 ml 1100 ml Laboratory Tests 03/09/18 04:35: White Blood Count 12.1H, Red Blood Count 3.60L, Hemoglobin 10.7L, Hematocrit 31.2L, Mean Corpuscular Volume 87, Mean Corpuscular Hemoglobin 29.7, Mean Corpuscular Hemoglobin Concent 34.2, Red Cell Distribution Width 13.1, Platelet Count 356, Mean Platelet Volume 7.8, Neutrophils (%) (Auto) 71.9, Lymphocytes (% ) (Auto) 14.0L, Monocytes (%) (Auto) 7.8, Eosinophils (%) (Auto) 4.4H, Basophils (%) (Auto) 1.9, Sodium Level 143, Potassium Level 4.2, Chloride Level 110H, Carbon Dioxide Level 24, Anion Gap 9, Blood Urea Nitrogen 36H, Creatinine 2.0H, Estimat Glomerular Filtration Rate 34.1, Glucose Level 118H, Calcium Level 8.8, Troponin I 0.125H Height (Feet): 5 Height (Inches): 9.00 Weight (Pounds): 178 General Appearance: other - dementia EENT: PERRL/EOMI, normal ENT inspection Neck: normal alignment, supple Cardiovascular: normal rate, regular rhythm Respiratory/Chest: lungs clear, normal breath sounds Abdomen: normal bowel sounds, non tender, soft Edema: no edema noted Arm (L), no edema noted Arm (R), no edema noted Leg (L), no edema noted Leg (R), no edema noted Pedal (L), no edema noted Pedal (R), no edema noted Generalized Tung Joseph M.D. March 09, 2018 08:40
[2018-03-09] MEDS: Milk of Magnesia 30ml Ud GT SCH (08:51)
[2018-03-09] MEDS: Ascorbic Acid 500mg tab GT SCH ×2 (08:52→18:10)
[2018-03-09] MEDS: Amiodarone 200mg tab GT SCH ×2 (08:52→22:15)
[2018-03-09] MEDS: Zinc Sulfate 220mg cap GT SCH (08:52)
[2018-03-09] MEDS: Bethanechol 25mg Tab GT SCH ×3 (08:52→18:10)
[2018-03-09] MEDS: Metoprolol Tartrate 50mg tab GT SCH ×2 (08:52→22:16)
[2018-03-09] MEDS: Lisinopril 20mg tab ORAL SCH (08:52)
--- NOTE | 2018-03-09 10:05 | General Progress Note ---
Assessment/Plan Assessment/Plan Assessment - UGIB, limited - ? GERD - mild anemia - OBS - Azotemia - dysphagia - elevated Troponin Recommendation - Follow conservatively - adjust feeds - Monitor CBC - PPI - Elevate HOB - possible EGD next week, if cleared by cardiology Subjective Allergies: Coded Allergies: PENICILLINS (Verified Allergy, Unknown, 03/07/18) Subjective non communicative comfortable tolerating TF - nephro at 50 Objective Last 24 Hour Vital Signs Date Time Temp Pulse Resp B/P (MAP) Pulse Ox O2 Delivery O2 Flow Rate FiO2 03/09/18 08:52 67 142/76 03/09/18 08:52 142/76 03/09/18 08:52 67 142/76 03/09/18 08:00 97.5 67 21 142/76 94 Room Air 97.5 03/09/18 06:13 149/79 03/09/18 04:00 97.6 68 20 149/79 95 Room Air 97.6 03/09/18 04:00 70 03/09/18 00:00 60 03/09/18 00:00 97.4 63 20 153/73 97 Room Air 97.4 03/08/18 20:57 59 142/84 03/08/18 20:57 142/84 03/08/18 20:00 98.2 64 16 142/84 98 Room Air 98.2 03/08/18 20:00 59 03/08/18 16:13 59 03/08/18 16:00 97.6 66 20 150/68 96 Room Air 97.6 03/08/18 13:37 129/69 03/08/18 12:00 97.6 59 20 129/69 97 Room Air 97.6 03/08/18 11:54 60 Intake and Output 03/08/18 03/09/18 19:00 07:00 Intake Total 1485 ml 1220 ml Output Total 750 ml 1100 ml Balance 735 ml 120 ml Intake Free Water 230 ml 400 ml IV Total 1200 ml 400 ml Tube Feeding 55 ml 420 ml Output Urine Total 750 ml 1100 ml Laboratory Tests 03/09/18 04:35: White Blood Count 12.1H, Red Blood Count 3.60L, Hemoglobin 10.7L, Hematocrit 31.2L, Mean Corpuscular Volume 87, Mean Corpuscular Hemoglobin 29.7, Mean Corpuscular Hemoglobin Concent 34.2, Red Cell Distribution Width 13.1, Platelet Count 356, Mean Platelet Volume 7.8, Neutrophils (%) (Auto) 71.9, Lymphocytes (% ) (Auto) 14.0L, Monocytes (%) (Auto) 7.8, Eosinophils (%) (Auto) 4.4H, Basophils (%) (Auto) 1.9, Sodium Level 143, Potassium Level 4.2, Chloride Level 110H, Carbon Dioxide Level 24, Anion Gap 9, Blood Urea Nitrogen 36H, Creatinine 2.0H, Estimat Glomerular Filtration Rate 34.1, Glucose Level 118H, Calcium Level 8.8, Troponin I 0.125H Height (Feet): 5 Height (Inches): 9.00 Weight (Pounds): 178 Objective Elderly WM NCAT supple CTA RRR Soft ND NT no edema OBS Esa Stanton MD March 09, 2018 10:05
[2018-03-09 12:00] VITALS: BP 123/60
[2018-03-09 16:00] VITALS: BP 140/73
[2018-03-09 20:00] VITALS: BP 142/74
[2018-03-09] MEDS: Atorvastatin 80mg tab GT SCH (22:16)
[2018-03-10] VITALS: BP 131/67
[2018-03-10 04:00] VITALS: BP 134/60
[2018-03-10] MEDS: HydrALAZINE 50mg tab GT SCH ×3 (06:04→21:43)
[2018-03-10] MEDS: NovoLOG Insulin Flexpen SUBQ SCH ×4 (06:06→21:47)
--- NOTE | 2018-03-10 07:59 | General Progress Note ---
Assessment/Plan Assessment/Plan IMPRESSION possible GIB coffee ground emesis anemia acute renal failure hypernatremia dementia chronic encephalopathy PLAN hypotonic fluids as is and monitor recheck labs protonix gi - conservative care- plan to dc with stable HH cards renal noted monitor without change impression, plan, and exam edited and reviewed in detail care discussed with RN Subjective Allergies: Coded Allergies: PENICILLINS (Verified Allergy, Unknown, 03/07/18) Subjective care noted comfortable transferred out to tele Objective Last 24 Hour Vital Signs Date Time Temp Pulse Resp B/P (MAP) Pulse Ox O2 Delivery O2 Flow Rate FiO2 03/10/18 06:04 134/60 03/10/18 04:00 96.4 55 22 134/60 96 Room Air 96.4 03/10/18 04:00 54 03/10/18 00:00 55 03/10/18 00:00 96.9 56 20 131/67 94 Room Air 96.9 03/09/18 22:17 142/74 03/09/18 22:16 71 142/74 03/09/18 20:00 97.5 71 18 142/74 94 Room Air 97.5 03/09/18 20:00 69 03/09/18 16:00 97.6 70 20 140/73 94 Room Air 97.6 03/09/18 16:00 59 03/09/18 14:42 123/60 03/09/18 12:00 97.7 55 20 123/60 94 Room Air 97.7 03/09/18 11:53 56 03/09/18 08:52 67 142/76 03/09/18 08:52 142/76 03/09/18 08:52 67 142/76 03/09/18 08:00 97.5 67 21 142/76 94 Room Air 97.5 Intake and Output 03/09/18 03/10/18 19:00 07:00 Intake Total 935 ml Output Total 900 ml Balance 935 ml -900 ml Intake Free Water 150 ml IV Total 400 ml Tube Feeding 385 ml Output Urine Total 900 ml # Bowel Movements 1 Height (Feet): 5 Height (Inches): 9.00 Weight (Pounds): 178 Objective WDWN NAD clear breath sounds bilaterally without rhonchi or wheeze [id number] without MRG NABS nontender no HSM GT no CCE Wes Jara MD March 10, 2018 07:59
[2018-03-10 08:00] VITALS: BP 132/61
--- NOTE | 2018-03-10 08:40 | Nephrology Progress Note ---
Assessment/Plan Assessment/Plan 1. ROD on CKD 4- baseline Cr unkown - AM labs pending - Renal US negative. Cotinue free water. Will DC IVF's today 2. Hypernatremia- free water thru GTube. DC IVF's. AM labs pending 3. Hyperkalemia- resolved 4. GI Bleed- per GI mgmt Subjective Date patient seen: March 10, 2018 Time patient seen: 08:38 ROS Limited/Unobtainable: Yes Allergies: Coded Allergies: PENICILLINS (Verified Allergy, Unknown, 03/07/18) Subjective Patient with severe dementia. In no acute distress Objective Last 24 Hour Vital Signs Date Time Temp Pulse Resp B/P (MAP) Pulse Ox O2 Delivery O2 Flow Rate FiO2 03/10/18 06:04 134/60 03/10/18 04:00 96.4 55 22 134/60 96 Room Air 96.4 03/10/18 04:00 54 03/10/18 00:00 55 03/10/18 00:00 96.9 56 20 131/67 94 Room Air 96.9 03/09/18 22:17 142/74 03/09/18 22:16 71 142/74 03/09/18 20:00 97.5 71 18 142/74 94 Room Air 97.5 03/09/18 20:00 69 03/09/18 16:00 97.6 70 20 140/73 94 Room Air 97.6 03/09/18 16:00 59 03/09/18 14:42 123/60 03/09/18 12:00 97.7 55 20 123/60 94 Room Air 97.7 03/09/18 11:53 56 03/09/18 08:52 67 142/76 03/09/18 08:52 142/76 03/09/18 08:52 67 142/76 Intake and Output 03/09/18 03/10/18 19:00 07:00 Intake Total 935 ml Output Total 900 ml Balance 935 ml -900 ml Intake Free Water 150 ml IV Total 400 ml Tube Feeding 385 ml Output Urine Total 900 ml # Bowel Movements 1 Height (Feet): 5 Height (Inches): 9.00 Weight (Pounds): 178 General Appearance: WD/WN, no apparent distress EENT: normal ENT inspection Neck: normal alignment, supple Cardiovascular: normal peripheral pulses, normal rate, regular rhythm Respiratory/Chest: lungs clear, normal breath sounds Abdomen: normal bowel sounds, non tender, soft Edema: no edema noted Arm (L), no edema noted Arm (R), no edema noted Leg (L), no edema noted Leg (R), no edema noted Pedal (L), no edema noted Pedal (R), no edema noted Generalized Tung Joseph M.D. March 10, 2018 08:40
[2018-03-10 08:45] LABS: BASOPHILS % (AUTO) 1.6 % (0.0-2.0); EOSINOPHILS % (AUTO) 3.6 % (0.0-3.0); LYMPHOCYTES % (AUTO) 18.7 % (20.0-45.0); MEAN CORPUSCULAR VOLUME 88 FL (80-99); MONOCYTES % (AUTO) 7.1 % (1.0-10.0); NEUTROPHILS % (AUTO) 69.1 % (45.0-75.0); PLATELET COUNT 326 K/UL (150-450); RED BLOOD COUNT 3.77 M/UL (4.70-6.10); RED CELL DISTRIBUTION WIDTH 13.2 % (11.6-14.8); WHITE BLOOD COUNT 11.3 K/UL (4.8-10.8)
[2018-03-10] MEDS: Ascorbic Acid 500mg tab GT SCH ×2 (08:51→17:49)
[2018-03-10] MEDS: Bethanechol 25mg Tab GT SCH ×3 (08:51→17:49)
[2018-03-10] MEDS: Lisinopril 20mg tab ORAL SCH (08:53)
[2018-03-10] MEDS: Milk of Magnesia 30ml Ud GT SCH (08:56)
[2018-03-10] MEDS: Zinc Sulfate 220mg cap GT SCH (08:56)
[2018-03-10] MEDS: Metoprolol Tartrate 50mg tab GT SCH ×2 (08:56→21:43)
[2018-03-10] MEDS: Amiodarone 200mg tab GT SCH ×2 (08:57→21:44)
--- NOTE | 2018-03-10 09:05 | General Progress Note ---
Assessment/Plan Assessment/Plan Assessment - UGIB, limited/resolved - ? GERD - anemia - OBS - Azotemia - dysphagia - elevated Troponin Recommendation - Follow conservatively - adjust feeds - Monitor CBC - PPI - Elevate HOB - possible EGD, when cleared by cardiology Subjective Allergies: Coded Allergies: PENICILLINS (Verified Allergy, Unknown, 03/07/18) Subjective non communicative comfortable tolerating TF Objective Last 24 Hour Vital Signs Date Time Temp Pulse Resp B/P (MAP) Pulse Ox O2 Delivery O2 Flow Rate FiO2 03/10/18 08:56 67 132/61 03/10/18 08:55 67 132/61 03/10/18 08:53 132/61 03/10/18 06:04 134/60 03/10/18 04:00 96.4 55 22 134/60 96 Room Air 96.4 03/10/18 04:00 54 03/10/18 00:00 55 03/10/18 00:00 96.9 56 20 131/67 94 Room Air 96.9 03/09/18 22:17 142/74 03/09/18 22:16 71 142/74 03/09/18 20:00 97.5 71 18 142/74 94 Room Air 97.5 03/09/18 20:00 69 03/09/18 16:00 97.6 70 20 140/73 94 Room Air 97.6 03/09/18 16:00 59 03/09/18 14:42 123/60 03/09/18 12:00 97.7 55 20 123/60 94 Room Air 97.7 03/09/18 11:53 56 Intake and Output 03/09/18 03/10/18 19:00 07:00 Intake Total 935 ml Output Total 900 ml Balance 935 ml -900 ml Intake Free Water 150 ml IV Total 400 ml Tube Feeding 385 ml Output Urine Total 900 ml # Bowel Movements 1 Laboratory Tests 03/10/18 08:20: White Blood Count [Pending], Red Blood Count [Pending], Hemoglobin [Pending], Hematocrit [Pending], Mean Corpuscular Volume [Pending], Mean Corpuscular Hemoglobin [Pending], Mean Corpuscular Hemoglobin Concent [Pending], Red Cell Distribution Width [Pending], Platelet Count [Pending], Mean Platelet Volume [ Pending], Neutrophils (%) (Auto) [Pending], Lymphocytes (%) (Auto) [Pending], Monocytes (%) (Auto) [Pending], Eosinophils (%) (Auto) [Pending], Basophils (%) (Auto) [Pending], Sodium Level [Pending], Potassium Level [Pending], Chloride Level [Pending], Carbon Dioxide Level [Pending], Blood Urea Nitrogen [Pending], Creatinine [Pending], Estimat Glomerular Filtration Rate [Pending], Glucose Level [Pending], Calcium Level [Pending] Height (Feet): 5 Height (Inches): 9.00 Weight (Pounds): 178 Objective Elderly WM NCAT supple CTA RRR Soft ND NT no edema OBS Esa Stanton MD March 10, 2018 09:05
[2018-03-10 09:35] LABS: ANION GAP 8 mmol/L (5-15); BLOOD UREA NITROGEN 29 mg/dL (7-18); CALCIUM 9.1 MG/DL (8.5-10.1); CARBON DIOXIDE 23 MMOL/L (21-32); CHLORIDE 108 MMOL/L (98-107); CREATININE 1.9 MG/DL (0.55-1.30); POTASSIUM 4.7 MMOL/L (3.5-5.1); SODIUM 139 MMOL/L (136-145)
[2018-03-10 12:00] VITALS: BP 116/58
[2018-03-10 16:00] VITALS: BP 138/63
[2018-03-10 20:00] VITALS: BP 152/75
[2018-03-10] MEDS: Atorvastatin 80mg tab GT SCH (21:43)
--- NOTE | 2018-03-10 23:19 | Cardiology Report ---
APPROVED REPORT EKG Measurement Heart [id number] Normal sinus rhythm Left axis deviation Abnormal ECG
[2018-03-11] VITALS (7 sets, daily range): BP systolic 101–153; BP diastolic 55–71
--- NOTE | 2018-03-11 03:30 | Progress Note ---
DATE: 03/08/2018 CARDIOLOGY PROGRESS NOTE Late entry, 03/08/2018 SUBJECTIVE: No new signs of bleeding noted. No emesis. OBJECTIVE: VITAL SIGNS: Blood pressure 129/69, pulse 59, respirations 20, and afebrile. LUNGS: Coarse breath sounds. No wheezing. CARDIAC: Regular rhythm and rate. Normal S1, S2. ABDOMEN: Soft. No focal tenderness. EXTREMITIES: No edema. 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 LABORATORY DATA: White count 13, hemoglobin 10.2. Sodium 148, potassium 5, bicarbonate 25, BUN 48, and creatinine 2.2. Troponin 0.141. IMPRESSION: 1. Acute gastrointestinal bleeding, now stabilized. 2. Acute myocardial infarction, uncomplicated. 3. Dehydration, hypernatremia. 4. Acute on chronic renal failure. 5. Sinus bradyarrhythmia. PLAN: 1. Cardiac monitoring. 2. Serial hemoglobin. 3. Serial troponin. 4. No anti-platelet therapy. 5. Continue beta-juany. 6. Titrate antihypertensives. 7. Discontinue clonidine if bradyarrhythmia worsen. Dimitri Saha M.D. DR: JILLIAN JOB#: [id number] CC:
--- NOTE | 2018-03-11 03:45 | Progress Note ---
DATE: 03/10/2018 CARDIOLOGY PROGRESS NOTE SUBJECTIVE: The patient remains comfortable. No distress. No signs of new bleeding. He continues on IV fluids. OBJECTIVE: VITAL SIGNS: Blood pressure 132/61, pulse 57, and respirations 18. LUNGS: Clear. CARDIAC: Regular. Normal S1, S2. ABDOMEN: Soft. No edema. LABORATORY DATA: Sodium 139, potassium 4.7, BUN 29, and creatinine 1.9. IMPRESSION: 1. Gastrointestinal bleed, resolved. 2. Dehydration, corrected. 3. Hypernatremia, corrected. 4. Acute on chronic renal failure, improved. 5. Acute myocardial infarction, uncomplicated and likely precipitated by acute hypoperfusion in the setting of gastrointestinal bleed. 6. Bradyarrhythmia, secondary to medications. PLAN: 1. No anti-platelet or anticoagulants in view of bleeding risk . 2. Discontinue intravenous fluids once renal function has been optimized. 3. Titrate antihypertensives. 4. Avoid clonidine in view of bradyarrhythmia. 5. We will discontinue antiarrhythmic and manage with beta-juany for suppression of atrial tachyarrhythmias. 6. Discussed with Dr. Stanton. 7. Agree with conservative management in this setting and avoiding procedures. Dimitri Saha M.D. DR: JILLIAN JOB#: [id number] CC:
[2018-03-11] MEDS: HydrALAZINE 50mg tab GT SCH ×3 (06:31→23:10)
[2018-03-11] MEDS: NovoLOG Insulin Flexpen SUBQ SCH ×4 (06:35→22:29)
--- NOTE | 2018-03-11 08:11 | Nephrology Progress Note ---
Assessment/Plan Assessment/Plan 1. ROD on CKD 4- Cr yesterday 1.9. OK for DC from renal point - AM labs pending this am - Renal US negative. Cotinue free water. 2. Hypernatremia- free water thru GTube. Resolved 3. Hyperkalemia- resolved 4. GI Bleed- per GI mgmt. Stable Subjective Date patient seen: March 11, 2018 Time patient seen: 08:09 ROS Limited/Unobtainable: Yes Allergies: Coded Allergies: PENICILLINS (Verified Allergy, Unknown, 03/07/18) All Systems: reviewed and negative except above Subjective Patient with severe dementia. Resting Objective Last 24 Hour Vital Signs Date Time Temp Pulse Resp B/P (MAP) Pulse Ox O2 Delivery O2 Flow Rate FiO2 03/11/18 06:31 153/71 03/11/18 04:00 61 03/11/18 04:00 98.0 92 20 153/71 96 Room Air 98.0 03/11/18 00:00 54 03/11/18 00:00 98.2 60 20 152/71 94 Room Air 98.2 03/10/18 21:43 57 132/61 03/10/18 21:43 132/61 03/10/18 20:00 97.9 63 20 152/75 97 Room Air 97.9 03/10/18 20:00 63 03/10/18 16:00 98.0 60 18 138/63 96 Room Air 98.0 03/10/18 16:00 62 03/10/18 13:16 116/58 03/10/18 12:00 96.8 55 18 116/58 96 Room Air 96.8 03/10/18 12:00 54 03/10/18 08:56 67 132/61 03/10/18 08:55 67 132/61 03/10/18 08:53 132/61 Intake and Output 03/10/18 03/11/18 19:00 07:00 Intake Total 1420 ml 1185 ml Output Total 600 ml 800 ml Balance 820 ml 385 ml IV Total 600 ml 350 ml Tube Feeding 420 ml 385 ml Other 400 ml 450 ml Output Urine Total 600 ml 800 ml # Voids 3 # Bowel Movements 2 Laboratory Tests 03/10/18 08:20: White Blood Count 11.3H, Red Blood Count 3.77L, Hemoglobin 11.0L, Hematocrit 33.0L, Mean Corpuscular Volume 88, Mean Corpuscular Hemoglobin 29.1, Mean Corpuscular Hemoglobin Concent 33.2, Red Cell Distribution Width 13.2, Platelet Count 326, Mean Platelet Volume 7.6, Neutrophils (%) (Auto) 69.1, Lymphocytes (% ) (Auto) 18.7L, Monocytes (%) (Auto) 7.1, Eosinophils (%) (Auto) 3.6H, Basophils (%) (Auto) 1.6, Sodium Level 139, Potassium Level 4.7, Chloride Level 108H, Carbon Dioxide Level 23, Anion Gap 8, Blood Urea Nitrogen 29H, Creatinine 1.9H, Estimat Glomerular Filtration Rate 36.2, Glucose Level 144H, Calcium Level 9.1 Height (Feet): 5 Height (Inches): 9.00 Weight (Pounds): 178 General Appearance: no apparent distress EENT: normal ENT inspection Neck: normal alignment, supple Cardiovascular: normal rate, regular rhythm Respiratory/Chest: lungs clear, normal breath sounds Abdomen: non tender, soft Edema: no edema noted Arm (L), no edema noted Arm (R), no edema noted Leg (L), no edema noted Leg (R), no edema noted Pedal (L), no edema noted Pedal (R), no edema noted Generalized Tung Joseph M.D. March 11, 2018 08:11
[2018-03-11] MEDS: Ascorbic Acid 500mg tab GT SCH ×2 (08:47→18:02)
[2018-03-11] MEDS: Bethanechol 25mg Tab GT SCH ×3 (08:47→18:01)
[2018-03-11] MEDS: Zinc Sulfate 220mg cap GT SCH (08:47)
[2018-03-11] MEDS: Milk of Magnesia 30ml Ud GT SCH (08:47)
[2018-03-11] MEDS: Metoprolol Tartrate 50mg tab GT SCH ×2 (08:48→20:41)
[2018-03-11] MEDS: Lisinopril 20mg tab ORAL SCH (08:49)
[2018-03-11 09:48] LABS: BASOPHILS % (AUTO) 0.9 % (0.0-2.0); HEMATOCRIT 30.4 % (42.0-52.0); HEMOGLOBIN 10.3 G/DL (14.2-18.0); LYMPHOCYTES % (AUTO) 18.5 % (20.0-45.0); MEAN CORPUSCULAR VOLUME 87 FL (80-99); MONOCYTES % (AUTO) 9.1 % (1.0-10.0); NEUTROPHILS % (AUTO) 68.6 % (45.0-75.0); PLATELET COUNT 354 K/UL (150-450); RED BLOOD COUNT 3.48 M/UL (4.70-6.10); RED CELL DISTRIBUTION WIDTH 13.2 % (11.6-14.8); WHITE BLOOD COUNT 12.4 K/UL (4.8-10.8)
--- NOTE | 2018-03-11 10:13 | Cardiology Report ---
APPROVED REPORT EXAM: Two-dimensional and M-mode echocardiogram with Doppler and color Doppler. INDICATION ACUTE MYOCARD INFARCTION M-Mode DIMENSIONS IVSd2.0 (0.7-1.1cm) LVDd6.5 (3.5-5.6cm) PWd1.7 (0.7-1.1cm) IVSs2.7 cm LVDs3.7 (2.5-4.0cm) PWs2.0 cm Normal left ventricular chamber size, systolic function and wall motion to extent visualized. Left ventricular ejection fraction estimated to be 60-65 %. No evidence of left ventricular hypertrophy. No evidence of pericardial effusion. All other cardiac chamber sizes are within normal limits. Heavily Focal aortic valve sclerosis with adequate cusp excursion. Heavily Thickened mitral valve leaflets with normal excursion. Heavily Mitral annulus and aortic root calcification. Normal pulmonic valve structure. Normal tricuspid valve structure. IVC dilated at size 2.1 with physiologic collapse. A color flow and spectral Doppler study was performed and revealed: No aortic regurgitation. Trace mitral regurgitation. Mitral diastolic velocities suggest reduced left ventricular relaxation c/w mild LV diastolic dysfunction (Grade I ). Trace tricuspid regurgitation. Tricuspid systolic velocities suggests peak right ventricular systolic pressure of 24 No Pulmonic regurgitation present.
[2018-03-11 10:44] LABS: CHOLESTEROL 103 MG/DL (< 200); HDL CHOLESTEROL 39 MG/DL (40-60); TRIGLYCERIDES 189 MG/DL (30-150)
[2018-03-11 11:12] LABS: ANION GAP 10 mmol/L (5-15); BLOOD UREA NITROGEN 27 mg/dL (7-18); CARBON DIOXIDE 24 MMOL/L (21-32); CHLORIDE 105 MMOL/L (98-107); CREATININE 1.9 MG/DL (0.55-1.30); POTASSIUM 4.3 MMOL/L (3.5-5.1); SODIUM 138 MMOL/L (136-145)
--- NOTE | 2018-03-11 11:33 | General Progress Note ---
Assessment/Plan Assessment/Plan IMPRESSION possible GIB coffee ground emesis anemia acute renal failure hypernatremia dementia chronic encephalopathy PLAN dc to SNF no changes for now monitor as is impression, plan, and exam edited and reviewed in detail care discussed with RN Subjective ROS Limited/Unobtainable: Yes Allergies: Coded Allergies: PENICILLINS (Verified Allergy, Unknown, 03/07/18) Subjective care noted comfortable no acute change Objective Last 24 Hour Vital Signs Date Time Temp Pulse Resp B/P (MAP) Pulse Ox O2 Delivery O2 Flow Rate FiO2 03/11/18 10:00 96.8 58 17 120/65 93 Room Air 96.8 03/11/18 08:48 58 101/55 03/11/18 08:48 58 101/55 03/11/18 08:00 96.8 58 17 101/55 93 Room Air 96.8 03/11/18 08:00 56 03/11/18 06:31 153/71 03/11/18 04:00 61 03/11/18 04:00 98.0 92 20 153/71 96 Room Air 98.0 03/11/18 00:00 54 03/11/18 00:00 98.2 60 20 152/71 94 Room Air 98.2 03/10/18 21:43 57 132/61 03/10/18 21:43 132/61 03/10/18 20:00 97.9 63 20 152/75 97 Room Air 97.9 03/10/18 20:00 63 03/10/18 16:00 98.0 60 18 138/63 96 Room Air 98.0 03/10/18 16:00 62 03/10/18 13:16 116/58 03/10/18 12:00 96.8 55 18 116/58 96 Room Air 96.8 03/10/18 12:00 54 Intake and Output 03/10/18 03/11/18 19:00 07:00 Intake Total 1420 ml 1185 ml Output Total 600 ml 800 ml Balance 820 ml 385 ml IV Total 600 ml 350 ml Tube Feeding 420 ml 385 ml Other 400 ml 450 ml Output Urine Total 600 ml 800 ml # Voids 3 # Bowel Movements 2 Laboratory Tests 03/11/18 09:05: White Blood Count 12.4H, Red Blood Count 3.48L, Hemoglobin 10.3L, Hematocrit 30.4L, Mean Corpuscular Volume 87, Mean Corpuscular Hemoglobin 29.7, Mean Corpuscular Hemoglobin Concent 34.0, Red Cell Distribution Width 13.2, Platelet Count 354, Mean Platelet Volume 8.2, Neutrophils (%) (Auto) 68.6, Lymphocytes (% ) (Auto) 18.5L, Monocytes (%) (Auto) 9.1, Eosinophils (%) (Auto) 3.0, Basophils (%) (Auto) 0.9, Sodium Level 138, Potassium Level 4.3, Chloride Level 105, Carbon Dioxide Level 24, Anion Gap 10, Blood Urea Nitrogen 27H, Creatinine 1.9H , Estimat Glomerular Filtration Rate 36.2, Glucose Level 177H, Calcium Level 9.0 , Troponin I 0.119H, Triglycerides Level 189H, Cholesterol Level 103, LDL Cholesterol 41, HDL Cholesterol 39L, Cholesterol/HDL Ratio 2.6L Height (Feet): 5 Height (Inches): 9.00 Weight (Pounds): 178 Objective WDWN NAD clear breath sounds bilaterally without rhonchi or wheeze [id number] without MRG NABS nontender no HSM GT no CCE Wes Jara MD March 11, 2018 11:33
[2018-03-11] MEDS: Atorvastatin 80mg tab GT SCH (20:41)
--- NOTE | 2018-03-11 21:00 | General Progress Note ---
Assessment/Plan Assessment/Plan Assessment - UGIB, limited/resolved - ? GERD - anemia - OBS - Azotemia - dysphagia - elevated Troponin Recommendation - Follow conservatively - adjust feeds - Monitor CBC - PPI - Elevate HOB - given age and cardiac status, and lack for clinical bleeding, will not plan on endoscopy Subjective Allergies: Coded Allergies: PENICILLINS (Verified Allergy, Unknown, 03/07/18) Subjective non communicative comfortable tolerating TF d/w cardiology Objective Last 24 Hour Vital Signs Date Time Temp Pulse Resp B/P (MAP) Pulse Ox O2 Delivery O2 Flow Rate FiO2 03/11/18 20:41 61 131/60 03/11/18 16:00 56 03/11/18 16:00 97.0 58 21 131/60 96 Room Air 97.0 03/11/18 15:18 143/68 03/11/18 12:00 57 03/11/18 12:00 96.8 61 20 143/68 96 Room Air 96.8 03/11/18 10:00 96.8 58 17 120/65 93 Room Air 96.8 03/11/18 08:48 58 101/55 03/11/18 08:48 58 101/55 03/11/18 08:00 96.8 58 17 101/55 93 Room Air 96.8 03/11/18 08:00 56 03/11/18 06:31 153/71 03/11/18 04:00 61 03/11/18 04:00 98.0 92 20 153/71 96 Room Air 98.0 03/11/18 00:00 54 03/11/18 00:00 98.2 60 20 152/71 94 Room Air 98.2 03/10/18 21:43 57 132/61 03/10/18 21:43 132/61 Intake and Output 03/10/18 03/11/18 19:00 07:00 Intake Total 1420 ml 1185 ml Output Total 600 ml 800 ml Balance 820 ml 385 ml IV Total 600 ml 350 ml Tube Feeding 420 ml 385 ml Other 400 ml 450 ml Output Urine Total 600 ml 800 ml # Voids 3 # Bowel Movements 2 Laboratory Tests 03/11/18 09:05: White Blood Count 12.4H, Red Blood Count 3.48L, Hemoglobin 10.3L, Hematocrit 30.4L, Mean Corpuscular Volume 87, Mean Corpuscular Hemoglobin 29.7, Mean Corpuscular Hemoglobin Concent 34.0, Red Cell Distribution Width 13.2, Platelet Count 354, Mean Platelet Volume 8.2, Neutrophils (%) (Auto) 68.6, Lymphocytes (% ) (Auto) 18.5L, Monocytes (%) (Auto) 9.1, Eosinophils (%) (Auto) 3.0, Basophils (%) (Auto) 0.9, Sodium Level 138, Potassium Level 4.3, Chloride Level 105, Carbon Dioxide Level 24, Anion Gap 10, Blood Urea Nitrogen 27H, Creatinine 1.9H , Estimat Glomerular Filtration Rate 36.2, Glucose Level 177H, Calcium Level 9.0 , Troponin I 0.119H, Triglycerides Level 189H, Cholesterol Level 103, LDL Cholesterol 41, HDL Cholesterol 39L, Cholesterol/HDL Ratio 2.6L Height (Feet): 5 Height (Inches): 9.00 Weight (Pounds): 178 Objective Elderly WM NCAT supple CTA RRR Soft ND NT no edema OBS Esa Stanton MD March 11, 2018 21:00
--- NOTE | 2018-03-11 23:15 | Consultation ---
History of Present Illness General Date patient seen: March 11, 2018 Chief Complaint: Gastrointestinal Bleed Present Illness HPI 62 year old patient presents from a [facility] facility. He had an episode of coffee-ground emesis this morning the pt gets agitated and pw waxing and waning of consciousness Allergies: Coded Allergies: PENICILLINS (Verified Allergy, Unknown, 03/07/18) Medication History Scheduled Amiodarone Hcl* (Amiodarone Hcl*), 200 MG GT EVERY 12 HOURS, (Reported) Amlodipine Besylate* (Amlodipine Besylate*), 5 MG GT DAILY, (Reported) Ascorbic Acid* (Ascorbic Acid*), 500 MG GT TWICE A DAY, (Reported) Atorvastatin Calcium* (Atorvastatin Calcium*), 80 MG GT BEDTIME, (Reported) Bethanechol Chl* (Bethanechol Chloride*), 25 MG GT THREE TIMES A DAY, (Reported) Drwsrklaj-Odc-9* (Vxojnyfe-Dhk-1*), 1 PATCH TDERMAL ONCE A WEEK, (Reported) Hydralazine Hcl* (Hydralazine Hcl*), 50 MG GT EVERY 8 HOURS, (Reported) Insulin Glargine (Lantus), 20 SUBQ BEDTIME, (Reported) Lisinopril* (Lisinopril*), 40 MG ORAL DAILY, (Reported) Magnesium Hydroxide* (Milk Of Magnesia*), 30 ML HEMO DAILY, (Reported) Metoprolol Tartrate* (Metoprolol Tartrate*), 50 MG GT EVERY 12 HOURS, (Reported) Pantoprazole* (Pantoprazole*), 40 MG GT EVERY 12 HOURS, (Reported) Zinc Sulfate (Zinc-220*), 220 MG GT DAILY, (Reported) Scheduled PRN Acetaminophen* (Acetaminophen 325MG Tablet*), 650 MG GT Q4H PRN for For Pain, ( Reported) Miscellaneous Medications Insulin Lispro (Humalog), 0 SUBQ, (Reported) Patient History Limited by: medical condition History Provided By: Patient, Medical Record, PMD Healthcare decision maker Resuscitation status Full Code Advanced Directive on File NA Past Medical/Surgical History Past Medical/Surgical History: (1) NSTEMI (non-ST elevated myocardial infarction) (2) UGI bleed Review of Systems Psychiatric: Reports: emotional problems, hallucinations Physical Exam General Appearance: lethargic, confused, agitated Last 24 Hour Vital Signs Date Time Temp Pulse Resp B/P (MAP) Pulse Ox O2 Delivery O2 Flow Rate FiO2 03/11/18 23:10 131/60 03/11/18 20:41 61 131/60 03/11/18 16:00 56 03/11/18 16:00 97.0 58 21 131/60 96 Room Air 97.0 03/11/18 15:18 143/68 03/11/18 12:00 57 03/11/18 12:00 96.8 61 20 143/68 96 Room Air 96.8 03/11/18 10:00 96.8 58 17 120/65 93 Room Air 96.8 03/11/18 08:48 58 101/55 03/11/18 08:48 58 101/55 03/11/18 08:00 96.8 58 17 101/55 93 Room Air 96.8 03/11/18 08:00 56 03/11/18 06:31 153/71 03/11/18 04:00 61 03/11/18 04:00 98.0 92 20 153/71 96 Room Air 98.0 03/11/18 00:00 54 03/11/18 00:00 98.2 60 20 152/71 94 Room Air 98.2 Intake and Output 03/10/18 03/11/18 19:00 07:00 Intake Total 1420 ml 1185 ml Output Total 600 ml 800 ml Balance 820 ml 385 ml IV Total 600 ml 350 ml Tube Feeding 420 ml 385 ml Other 400 ml 450 ml Output Urine Total 600 ml 800 ml # Voids 3 # Bowel Movements 2 Laboratory Tests Test 03/11/18 09:05 White Blood Count 12.4 K/UL (4.8-10.8) H Red Blood Count 3.48 M/UL (4.70-6.10) L Hemoglobin 10.3 G/DL (14.2-18.0) L Hematocrit 30.4 % (42.0-52.0) L Mean Corpuscular Volume 87 FL (80-99) Mean Corpuscular Hemoglobin 29.7 PG (27.0-31.0) Mean Corpuscular Hemoglobin Concent 34.0 G/DL (32.0-36.0) Red Cell Distribution Width 13.2 % (11.6-14.8) Platelet Count 354 K/UL (150-450) Mean Platelet Volume 8.2 FL (6.5-10.1) Neutrophils (%) (Auto) 68.6 % (45.0-75.0) Lymphocytes (%) (Auto) 18.5 % (20.0-45.0) L Monocytes (%) (Auto) 9.1 % (1.0-10.0) Eosinophils (%) (Auto) 3.0 % (0.0-3.0) Basophils (%) (Auto) 0.9 % (0.0-2.0) Sodium Level 138 MMOL/L (136-145) Potassium Level 4.3 MMOL/L (3.5-5.1) Chloride Level 105 MMOL/L (98-107) Carbon Dioxide Level 24 MMOL/L (21-32) Anion Gap 10 mmol/L (5-15) Blood Urea Nitrogen 27 mg/dL (7-18) H Creatinine 1.9 MG/DL (0.55-1.30) H Estimat Glomerular Filtration Rate 36.2 mL/min (>60) Glucose Level 177 MG/DL (74-106) H Calcium Level 9.0 MG/DL (8.5-10.1) Troponin I 0.119 ng/mL (0.000-0.056) Triglycerides Level 189 MG/DL (30-150) H Cholesterol Level 103 MG/DL (< 200) LDL Cholesterol 41 mg/dL (<100) HDL Cholesterol 39 MG/DL (40-60) L Cholesterol/HDL Ratio 2.6 (3.3-4.4) L Height (Feet): 5 Height (Inches): 9.00 Weight (Pounds): 178 Medications Current Medications Medications (Trade) Dose Ordered Sig/Aniket Route PRN Reason Start Time Stop Time Status Last Admin Dose Admin Acetaminophen (Tylenol) 650 mg Q4H PRN ORAL mild pain / T>100.5 03/09/18 19:01 04/06/18 19:00 Amlodipine Besylate (Norvasc) 5 mg DAILY GT 03/10/18 09:00 04/07/18 08:59 03/10/18 08:55 Ascorbic Acid (Vitamin C) 500 mg TWICE A DAY GT 03/10/18 09:00 04/06/18 17:59 03/11/18 18:02 Atorvastatin Calcium (Lipitor) 80 mg BEDTIME GT 03/09/18 21:00 04/06/18 20:59 03/11/18 20:41 Bethanechol Chloride (Urecholine) 25 mg THREE TIMES A DAY GT 03/10/18 09:00 04/06/18 17:59 03/11/18 18:01 Dextrose (Dextrose 50%) 25 ml STAT PRN IV Hypoglycemia 03/10/18 16:45 04/06/18 16:44 Dextrose (Dextrose 50%) 50 ml STAT PRN IV Hypoglycemia 03/10/18 16:45 04/06/18 16:44 Hydralazine HCl (Apresoline) 50 mg EVERY 8 HOURS GT 03/09/18 22:00 04/06/18 21:59 03/11/18 23:10 Insulin Aspart (NovoLOG) BEFORE MEALS AND HS SUBQ 03/09/18 21:00 04/06/18 20:59 03/11/18 22:29 Lisinopril (Prinivil) 40 mg DAILY ORAL 03/10/18 09:00 04/07/18 08:59 03/10/18 08:53 Magnesium Hydroxide (Mom) 30 ml DAILY GT 03/10/18 09:00 04/07/18 08:59 03/11/18 08:47 Metoprolol Tartrate (Lopressor) 50 mg EVERY 12 HOURS GT 03/09/18 21:00 04/06/18 20:59 03/11/18 20:41 Pantoprazole (Protonix) 40 mg EVERY 12 HOURS ORAL 03/09/18 21:00 04/06/18 20:59 03/11/18 20:41 Sodium Chloride 1,000 ml @ 50 mls/hr Q20H IV 03/09/18 18:45 04/06/18 08:59 03/11/18 10:59 Zinc Sulfate (Zinc Sulfate) 220 mg DAILY GT 03/10/18 09:00 04/07/18 08:59 03/11/18 08:47 Assessment/Plan Status: unchanged Assessment/Plan encephalopathy agitation seroquel 25mg q 6hr prn Tristan Barba M.D. March 11, 2018 23:15
[2018-03-12] VITALS: BP 140/82
[2018-03-12 04:00] VITALS: BP 131/71
[2018-03-12] MEDS: NovoLOG Insulin Flexpen SUBQ SCH ×2 (06:30→12:38)
[2018-03-12] MEDS: HydrALAZINE 50mg tab GT SCH ×2 (07:00→14:17)
--- NOTE | 2018-03-12 07:59 | General Progress Note ---
Assessment/Plan Assessment/Plan Assessment - UGIB, limited/resolved - ? GERD - anemia - OBS - Azotemia - dysphagia - elevated Troponin Recommendation - Follow conservatively - adjust feeds - Monitor CBC - PPI - Elevate HOB - given age and cardiac status, and lack for clinical bleeding, will not plan on endoscopy - Will be away for 10 days. Coverage available. Please re-consult PRN. Subjective Allergies: Coded Allergies: PENICILLINS (Verified Allergy, Unknown, 03/07/18) Subjective non communicative comfortable tolerating TF Objective Last 24 Hour Vital Signs Date Time Temp Pulse Resp B/P (MAP) Pulse Ox O2 Delivery O2 Flow Rate FiO2 03/12/18 07:00 140/82 03/12/18 04:00 55 03/12/18 00:00 97.8 66 20 140/82 96 Room Air 97.8 03/12/18 00:00 58 03/11/18 23:10 131/60 03/11/18 20:41 61 131/60 03/11/18 20:00 63 03/11/18 20:00 97.3 66 19 143/69 95 Room Air 97.3 03/11/18 16:00 56 03/11/18 16:00 97.0 58 21 131/60 96 Room Air 97.0 03/11/18 15:18 143/68 03/11/18 12:00 57 03/11/18 12:00 96.8 61 20 143/68 96 Room Air 96.8 03/11/18 10:00 96.8 58 17 120/65 93 Room Air 96.8 03/11/18 08:48 58 101/55 03/11/18 08:48 58 101/55 03/11/18 08:00 96.8 58 17 101/55 93 Room Air 96.8 03/11/18 08:00 56 Intake and Output 03/11/18 03/12/18 19:00 07:00 Intake Total 685 ml 1050 ml Output Total 700 ml 475 ml Balance -15 ml 575 ml IV Total 650 ml 500 ml Tube Feeding 35 ml 350 ml Other 200 ml Output Urine Total 700 ml 475 ml Laboratory Tests 03/11/18 09:05: White Blood Count 12.4H, Red Blood Count 3.48L, Hemoglobin 10.3L, Hematocrit 30.4L, Mean Corpuscular Volume 87, Mean Corpuscular Hemoglobin 29.7, Mean Corpuscular Hemoglobin Concent 34.0, Red Cell Distribution Width 13.2, Platelet Count 354, Mean Platelet Volume 8.2, Neutrophils (%) (Auto) 68.6, Lymphocytes (% ) (Auto) 18.5L, Monocytes (%) (Auto) 9.1, Eosinophils (%) (Auto) 3.0, Basophils (%) (Auto) 0.9, Sodium Level 138, Potassium Level 4.3, Chloride Level 105, Carbon Dioxide Level 24, Anion Gap 10, Blood Urea Nitrogen 27H, Creatinine 1.9H , Estimat Glomerular Filtration Rate 36.2, Glucose Level 177H, Calcium Level 9.0 , Troponin I 0.119H, Triglycerides Level 189H, Cholesterol Level 103, LDL Cholesterol 41, HDL Cholesterol 39L, Cholesterol/HDL Ratio 2.6L 03/12/18 07:20: Sodium Level [Pending], Potassium Level [Pending], Chloride Level [Pending], Carbon Dioxide Level [Pending], Blood Urea Nitrogen [Pending], Creatinine [ Pending], Estimat Glomerular Filtration Rate [Pending], Glucose Level [Pending] , Calcium Level [Pending] Height (Feet): 5 Height (Inches): 9.00 Weight (Pounds): 178 Objective Elderly WM NCAT supple CTA RRR Soft ND NT no edema OBS Esa Stanton MD March 12, 2018 07:59
[2018-03-12 08:00] VITALS: BP 151/76
[2018-03-12 08:09] LABS: ANION GAP 9 mmol/L (5-15); BLOOD UREA NITROGEN 26 mg/dL (7-18); CALCIUM 9.3 MG/DL (8.5-10.1); CARBON DIOXIDE 24 MMOL/L (21-32); CHLORIDE 105 MMOL/L (98-107); CREATININE 1.7 MG/DL (0.55-1.30); POTASSIUM 4.2 MMOL/L (3.5-5.1); SODIUM 138 MMOL/L (136-145)
--- NOTE | 2018-03-12 08:43 | Nephrology Progress Note ---
Assessment/Plan Assessment/Plan 1. ROD on CKD 4- Cr down to 1.7. Stable for DC from renal point - Cotinue free water. 2. Hypernatremia- free water thru GTube. Resolved 3. Hyperkalemia- resolved 4. GI Bleed- per GI mgmt. Stable Subjective Date patient seen: March 12, 2018 Time patient seen: 08:41 ROS Limited/Unobtainable: Yes Allergies: Coded Allergies: PENICILLINS (Verified Allergy, Unknown, 03/07/18) Subjective Patient with severe dementia. Objective Last 24 Hour Vital Signs Date Time Temp Pulse Resp B/P (MAP) Pulse Ox O2 Delivery O2 Flow Rate FiO2 03/12/18 07:00 140/82 03/12/18 04:00 55 03/12/18 04:00 97.6 67 20 131/71 96 Room Air 97.6 03/12/18 00:00 97.8 66 20 140/82 96 Room Air 97.8 03/12/18 00:00 58 03/11/18 23:10 131/60 03/11/18 20:41 61 131/60 03/11/18 20:00 63 03/11/18 20:00 97.3 66 19 143/69 95 Room Air 97.3 03/11/18 16:00 56 03/11/18 16:00 97.0 58 21 131/60 96 Room Air 97.0 03/11/18 15:18 143/68 03/11/18 12:00 57 03/11/18 12:00 96.8 61 20 143/68 96 Room Air 96.8 03/11/18 10:00 96.8 58 17 120/65 93 Room Air 96.8 03/11/18 08:48 58 101/55 03/11/18 08:48 58 101/55 Intake and Output 03/11/18 03/12/18 19:00 07:00 Intake Total 685 ml 1050 ml Output Total 700 ml 475 ml Balance -15 ml 575 ml IV Total 650 ml 500 ml Tube Feeding 35 ml 350 ml Other 200 ml Output Urine Total 700 ml 475 ml Laboratory Tests 03/11/18 09:05: White Blood Count 12.4H, Red Blood Count 3.48L, Hemoglobin 10.3L, Hematocrit 30.4L, Mean Corpuscular Volume 87, Mean Corpuscular Hemoglobin 29.7, Mean Corpuscular Hemoglobin Concent 34.0, Red Cell Distribution Width 13.2, Platelet Count 354, Mean Platelet Volume 8.2, Neutrophils (%) (Auto) 68.6, Lymphocytes (% ) (Auto) 18.5L, Monocytes (%) (Auto) 9.1, Eosinophils (%) (Auto) 3.0, Basophils (%) (Auto) 0.9, Sodium Level 138, Potassium Level 4.3, Chloride Level 105, Carbon Dioxide Level 24, Anion Gap 10, Blood Urea Nitrogen 27H, Creatinine 1.9H , Estimat Glomerular Filtration Rate 36.2, Glucose Level 177H, Calcium Level 9.0 , Troponin I 0.119H, Triglycerides Level 189H, Cholesterol Level 103, LDL Cholesterol 41, HDL Cholesterol 39L, Cholesterol/HDL Ratio 2.6L 03/12/18 07:20: Sodium Level 138, Potassium Level 4.2, Chloride Level 105, Carbon Dioxide Level 24, Anion Gap 9, Blood Urea Nitrogen 26H, Creatinine 1.7H, Estimat Glomerular Filtration Rate 41.2, Glucose Level 138H, Calcium Level 9.3 Height (Feet): 5 Height (Inches): 9.00 Weight (Pounds): 178 General Appearance: no apparent distress EENT: normal ENT inspection Neck: normal alignment, supple Cardiovascular: normal rate, regular rhythm Respiratory/Chest: lungs clear, normal breath sounds Abdomen: non tender, soft Edema: no edema noted Arm (L), no edema noted Arm (R), no edema noted Leg (L), no edema noted Leg (R), no edema noted Pedal (L), no edema noted Pedal (R), no edema noted Generalized Tung Joseph M.D. March 12, 2018 08:43
--- NOTE | 2018-03-12 08:45 | Progress Note ---
DATE: 03/11/2018 CARDIOLOGY PROGRESS NOTE SUBJECTIVE: The patient without respiratory distress. No signs of new bleeding. Remains with trach collar. OBJECTIVE: VITAL SIGNS: Blood pressure 101/55, pulse 58, respiratory rate 17, monitored sinus and sinus bradycardia. LUNGS: Coarse breath sounds. No wheezing. HEART: Regular rhythm and rate. Normal S1 and S2. ABDOMEN: Soft. EXTREMITIES: Trace edema. LABORATORY DATA: White count 12.4 and hemoglobin 10.3. Troponin 0.119. BUN 27 and creatinine 1.9. LDL cholesterol is 41. IMPRESSION: 1. Status post GI bleed with no recurrence. 2. Dehydration and hypernatremia, corrected. 3. Acute myocardial infarction, uncomplicated and now stabilized. 4. Bradyarrhythmia due to medications, asymptomatic. 5. Acute on chronic renal failure, improving. PLAN: 1. Plan of care in place. 2. Can discontinue IV fluids and current medications. 3. No clonidine in view of bradycardia. 4. Maintain beta-blockade at current dosing. 5. Discharge planning appropriate at this time to subacute facility. Dimitri Saha M.D. DR: ROLAND JOB#: [id number] CC:
--- NOTE | 2018-03-12 09:07 | General Progress Note ---
Assessment/Plan Assessment/Plan IMPRESSION possible GIB coffee ground emesis anemia acute renal failure hypernatremia dementia chronic encephalopathy PLAN dc to SNF with follow up no changes for now monitor as is- and follow up labs after discharge impression, plan, and exam edited and reviewed in detail care discussed with RN Subjective Allergies: Coded Allergies: PENICILLINS (Verified Allergy, Unknown, 03/07/18) Subjective care noted comfortable no acute change Objective Last 24 Hour Vital Signs Date Time Temp Pulse Resp B/P (MAP) Pulse Ox O2 Delivery O2 Flow Rate FiO2 03/12/18 07:00 140/82 03/12/18 04:00 55 03/12/18 04:00 97.6 67 20 131/71 96 Room Air 97.6 03/12/18 00:00 97.8 66 20 140/82 96 Room Air 97.8 03/12/18 00:00 58 03/11/18 23:10 131/60 03/11/18 20:41 61 131/60 03/11/18 20:00 63 03/11/18 20:00 97.3 66 19 143/69 95 Room Air 97.3 03/11/18 16:00 56 03/11/18 16:00 97.0 58 21 131/60 96 Room Air 97.0 03/11/18 15:18 143/68 03/11/18 12:00 57 03/11/18 12:00 96.8 61 20 143/68 96 Room Air 96.8 03/11/18 10:00 96.8 58 17 120/65 93 Room Air 96.8 Intake and Output 03/11/18 03/12/18 19:00 07:00 Intake Total 685 ml 1050 ml Output Total 700 ml 475 ml Balance -15 ml 575 ml IV Total 650 ml 500 ml Tube Feeding 35 ml 350 ml Other 200 ml Output Urine Total 700 ml 475 ml Laboratory Tests 03/12/18 07:20: Sodium Level 138, Potassium Level 4.2, Chloride Level 105, Carbon Dioxide Level 24, Anion Gap 9, Blood Urea Nitrogen 26H, Creatinine 1.7H, Estimat Glomerular Filtration Rate 41.2, Glucose Level 138H, Calcium Level 9.3 Height (Feet): 5 Height (Inches): 9.00 Weight (Pounds): 178 Objective WDWN NAD clear breath sounds bilaterally without rhonchi or wheeze [id number] without MRG NABS nontender no HSM GT no CCE Wes Jara MD March 12, 2018 09:07
[2018-03-12] MEDS: Bethanechol 25mg Tab GT SCH ×2 (09:25→14:18)
[2018-03-12] MEDS: Milk of Magnesia 30ml Ud GT SCH (09:25)
[2018-03-12] MEDS: Ascorbic Acid 500mg tab GT SCH (09:25)
[2018-03-12] MEDS: Zinc Sulfate 220mg cap GT SCH (09:25)
[2018-03-12] MEDS: Metoprolol Tartrate 50mg tab GT SCH (09:26)
[2018-03-12] MEDS: Lisinopril 20mg tab ORAL SCH (09:26)
--- NOTE | 2018-03-12 09:36 | Diagnostic Imaging Report ---
APPROVED REPORT CPT Code: 45652 Present Symptoms Comments: BILATERAL LEGS PAIN. BILATERAL: Imaging reveals a patent deep venous system bilaterally. There is no evidence of thrombus within the femoral, popliteal or tibial segments. The greater saphenous veins are also within normal limits. Doppler indicates normal spontaneous flow within these segments.
[2018-03-12 12:00] VITALS: BP 140/66
[2018-03-12 14:17] VITALS: BP 140/66
[2018-03-12] MEDS ORDERED: Sterile Water Irrig 1000ml IRRIG ONE (17:13)
[2018-03-12] MEDS ORDERED: Tubing IV Secondary IV ONE (17:13)
[2018-03-12] MEDS ORDERED: 1/2 NS 1000ml IV ONE (17:13)
[2018-03-12] MEDS ORDERED: NS 275ml ONE (17:13)
--- NOTE | 2018-03-12 22:57 | General Progress Note ---
Assessment/Plan Assessment/Plan encephalopathy agitation seroquel 25mg q 6hr prn Subjective Date patient seen: March 12, 2018 Neurologic/Psychiatric: Reports: anxiety, depressed, emotional problems Allergies: Coded Allergies: PENICILLINS (Verified Allergy, Unknown, 03/07/18) Objective Last 24 Hour Vital Signs Date Time Temp Pulse Resp B/P (MAP) Pulse Ox O2 Delivery O2 Flow Rate FiO2 03/12/18 14:17 140/66 03/12/18 12:00 53 03/12/18 12:00 97.3 53 19 140/66 95 Room Air 97.3 03/12/18 09:26 62 151/76 03/12/18 09:26 151/76 03/12/18 09:26 62 151/76 03/12/18 08:00 97.7 62 18 151/76 95 Room Air 97.7 03/12/18 08:00 58 03/12/18 07:00 140/82 03/12/18 04:00 55 03/12/18 04:00 97.6 67 20 131/71 96 Room Air 97.6 03/12/18 00:00 97.8 66 20 140/82 96 Room Air 97.8 03/12/18 00:00 58 03/11/18 23:10 131/60 Intake and Output 03/11/18 03/12/18 19:00 07:00 Intake Total 685 ml 1050 ml Output Total 700 ml 475 ml Balance -15 ml 575 ml IV Total 650 ml 500 ml Tube Feeding 35 ml 350 ml Other 200 ml Output Urine Total 700 ml 475 ml Laboratory Tests 03/12/18 07:20: Sodium Level 138, Potassium Level 4.2, Chloride Level 105, Carbon Dioxide Level 24, Anion Gap 9, Blood Urea Nitrogen 26H, Creatinine 1.7H, Estimat Glomerular Filtration Rate 41.2, Glucose Level 138H, Calcium Level 9.3 Height (Feet): 5 Height (Inches): 9.00 Weight (Pounds): 178 General Appearance: no apparent distress, lethargic, confused Tristan Barba M.D. March 12, 2018 22:57
--- NOTE | 2018-03-13 14:32 | Progress Note ---
DATE: 03/12/2018 CARDIOLOGY PROGRESS NOTE SUBJECTIVE: The patient without vomiting. No chest pain or shortness of breath. Monitored rhythm, sinus with rare atrial ectopy and bradycardia. PHYSICAL EXAMINATION: VITAL SIGNS: Blood pressure 131/71, pulse 67, respiratory rate 20, and oxygen saturation on room air 96%. NECK: Supple. LUNGS: Clear. CARDIAC: Regular rhythm. Slow rate. Normal S1, S2 with a fourth heart sound. ABDOMEN: Soft. No guarding, rebound, and no edema. IMPRESSION: 1. No signs of recurrent gastrointestinal bleeding. Stable hemoglobin. 2. Ischemic heart disease. 3. Non-ST elevation myocardial infarction uncomplicated and likely precipitated by hypoperfusion due to acute blood loss. 4. Dehydration and hypernatremia. 5. Corrected chronic encephalopathy with poor performance status. 6. Sinus bradycardia of no clinical significance. PLAN: 1. Medical management. 2. Avoiding invasive procedures and refractory to medical therapy. 3. Discharge medication regimen reviewed and reconciled. 4. Avoiding clonidine in view of bradycardia and maintaining current dose of beta-juany without change. 5. No anti-platelet therapy in view of bleeding risk. Dimitri Saha M.D. DR: ANDREA JOB#: [id number] CC:
--- NOTE | 2018-03-13 15:04 | Discharge Summary ---
Discharge Summary Discharge Summary _ DATE OF ADMISSION: 03/07/2018 DATE OF DISCHARGE: 02/23/2018 CONSULTANTS: Dr. Tristan Joseph BRIEF HOSPITAL COURSE: Patient is a 62-year-old male, from [facility] facility. Presented to ED after an episode of coffee-ground emesis per nursing staff and patient was transferred to ER for further evaluation. He has medical history significant diabetes mellitus, TIA, dementia, hypertension, and CKD. On evaluation, hemoglobin level was 11.9, hematocrit was 36, WBC 13.6. He was noted to have elevated creatinine level to 2.3, BUN 53, sodium was 147, potassium was 5.2. Urinalysis showed 4+ protein, 2+ glucose, 1+ ketones, 5+ occult blood. Troponin was noted to be elevated to 0.157. EKG was in normal sinus rhythm with no acute changes. He was admitted for evaluation of possible GI bleed due to coffee-ground emesis, anemia, acute renal failure, and hypernatremia. He was placed on nothing by mouth and was started on hypotonic fluids. He was given Protonix. He was seen by GI. Hemoglobin levels remained stable. G-tube feeding was started. There was no overt active bleeding noted, he was treated conservatively. Kidney function was stable and improved. Hypernatremia resolved with hydration. Hperkalemia, resolved. Renal ultrasound was unremarkable. He also had elevated troponin. Troponin levels were monitored and down trended. He was seen by a textile knitter. Patient had acute myocardial infarction, uncomplicated, and likely precipitated by acute hypoperfusion in the setting of GI bleed. Echocardiogram showed ejection fraction of 60-65%, no aortic regurgitation, no pericardial effusion. He was unable to be placed on antiplatelet therapy due to bleeding. He had episodes of bradyarrhythmia which was secondary to medications. Amiodarone was discontinued and was given Lopressor 50 mg every 12 hours via G-tube. He had waxing and waning of consciousness and was diagnosed with encephalopathy and agitation. He was given Seroquel 25 mg every 6 hours as needed. Hyperkalemia and hypernatremia improved with IV hydration. Renal ultrasound was unremarkable. FINAL DIAGNOSES: Possible GI bleed Coffee-ground emesis Anemia Acute renal failure on CK D stage IV Dementia Hypernatremia Hyperkalemia Chronic encephalopathy Ischemic heart disease Non-ST elevated MN uncomplicated and likely precipitated by hypoperfusion and acute blood loss Dehydration Sinus bradycardia Agitation DISPOSITION: [facility] . I have been assigned to dictate discharge summary on this account, and I was not involved in the patient's management. Maddie Olmos NP March 13, 2018 15:04
== END 2018-03-12 17:14 | DRG 377 ==
LOC: EDBD 09:37 → EMR 10:16 → EDBEDREQ 10:53 → 2W 11:12 → EDBEDREQSVC 11:34 → EDBEDREQ 11:34 → 2E 03-09 18:47
DX: K92.2 Gastrointestinal hemorrhage, unspecified (principal); G93.40 Encephalopathy, unspecified; I21.4 Non-ST elevation (NSTEMI) myocardial infarction; E43 Unspecified severe protein-calorie malnutrition; D62 Acute posthemorrhagic anemia; N17.9 Acute kidney failure, unspecified; N18.4 Chronic kidney disease, stage 4 (severe); E87.0 Hyperosmolality and hypernatremia; Z43.1 Encounter for attention to gastrostomy; D64.9 Anemia, unspecified; E11.22 Type 2 diabetes mellitus with diabetic chronic kidney disease; E87.5 Hyperkalemia; I25.9 Chronic ischemic heart disease, unspecified; E86.0 Dehydration; R00.1 Bradycardia, unspecified; R45.1 Restlessness and agitation; Z88.0 Allergy status to penicillin; Z86.73 Personal history of transient ischemic attack (TIA), and cerebral infarction without residual deficits; I12.9 Hypertensive chronic kidney disease with stage 1 through stage 4 chronic kidney disease, or unspecified chronic kidney disease; Z43.0 Encounter for attention to tracheostomy; R13.10 Dysphagia, unspecified; I73.9 Peripheral vascular disease, unspecified; Z89.411 Acquired absence of right great toe; F01.50 Vascular dementia, unspecified severity, without behavioral disturbance, psychotic disturbance, mood disturbance, and anxiety
CPT/HCPCS: 36415; 76770; 80048; 80053; 80061; 81003; 82550; 82962; 83605; 83690; 84484; 85025; 85610; 85730; 86850; 86900; 86901; 87081; 87324; 93005; 93306; 93970; 99285; J1815